=== PATIENT | female | born 1970 | race Caucasian/White ===

== ENCOUNTER 2017-06-04 07:55 | Outpatient (CLI) | payer OTHER ==
--- NOTE | 2017-06-04 10:46 | CT ---
CT ABDOMEN AND PELVIS WITH AND WITHOUT IV CONTRAST: Date: 06/04/17 HISTORY: Microscopic hematuria. FINDINGS: Lung bases are unremarkable. The patient is post gastric banding surgery. There are a few small low d ensity lesions in the liver, likely cysts. No calcified gallstones are seen. The spleen, pancreas, an d adrenal glands are normal. No calculi are seen in the kidneys, ureters, or the urinary bladder. Pos tcontrast images demonstrate no renal masses. There is normal contrast excretion into the ureters and urinary bladder. No free air, free fluid, or lymphadenopathy seen in the abdomen or pelvis. There are vascular calcifi cations without evidence of aneurysmal dilatation of the abdominal aorta. The small bowel loops are n ot abnormally dilated. There is sigmoid diverticulosis. A normal appearing appendix is present. There are degenerative changes in the spine. Uterus and ovaries are present. IMPRESSION: 1. No CT evidence of urinary tract calculi/obstruction or mass. 2. Sigmoid diverticulosis. 3. Probable small liver cysts. POS: [facility]
[2017-06-04] MEDS ORDERED: Iopamidol 370 76% 100 ML VIAL ONE (12:57)
== END 2017-06-04 07:56 | disposition home or self-care (01) ==
LOC: CT 07:55
PROVIDERS: ATTEND Internal Medicine
DX: R31.29 Other microscopic hematuria (principal); K57.30 Diverticulosis of large intestine without perforation or abscess without bleeding
CPT/HCPCS: 74178

== ENCOUNTER 2017-07-30 16:52 | Outpatient (CLI) | payer OTHER | END 2017-07-30 16:53 | disposition home or self-care (01) | LOC: BICRAD 16:52 | PROVIDERS: ATTEND Internal Medicine | DX: M79.671 Pain in right foot (principal) ==

== ENCOUNTER 2018-03-11 09:24 | Outpatient (CLI) | payer OTHER ==
--- NOTE | 2018-03-11 10:25 | RAD ---
CHEST 2 VIEWS: HISTORY: Cough. Tobacco abuse. FINDINGS: No comparison. Cardiac silhouette and pulmonary vasculature are unremarkable. Mediastinum is midlin e. No lobar consolidation, pneumothorax, or pleural fluid. IMPRESSION: No active cardiopulmonary abnormalities are demonstrated. POS: [facility]
== END 2018-03-11 09:25 | disposition home or self-care (01) ==
LOC: BICRAD 09:24
PROVIDERS: ATTEND Internal Medicine
DX: R05 Cough (principal)
CPT/HCPCS: 71046

== ENCOUNTER 2018-03-28 10:51 | Emergency (ER) | payer OTHER ==
[2018-03-28 11:21] LABS: Bilirubin Negative (Negative); Blood, Urine Small (Negative); Clarity CLEAR (Clear); Glucose, Urine (Dipstick) Negative (Negative); Leukocyte Negative (Negative); Nitrite Negative (Negative); Protein, Urine (Dipstick) Negative (Neg-Trace); Urobilinogen 0.2 mg/dL (0.2-1.0)
[2018-03-28 11:23] LABS: Bacteria/HPF None Seen HPF (None Seen); Hyaline Casts/LPF 0-3 HYALINE CAST LPF (0-3 Hyaline); Pathc Cast-AUWi Flag 0.43 (0-2.49); Squamous Epithelial None Seen HPF (0-3); WBC/HPF 0-3 HPF (0-3)
[2018-03-28] MEDS ORDERED: Ketorolac Tromethamine 30 MG/ML VIAL ONE (12:26)
[2018-03-28] MEDS ORDERED: Triamcinolone 40 MG/ML VIAL IM SCH (12:30)
[2018-03-28] MEDS ORDERED: Methocarbamol 500 MG TAB PO SCH (12:30)
== END 2018-03-28 13:00 | disposition home or self-care (01) ==
LOC: ERS 10:51
DX: M54.40 Lumbago with sciatica, unspecified side (principal); I10 Essential (primary) hypertension; F41.9 Anxiety disorder, unspecified; F17.210 Nicotine dependence, cigarettes, uncomplicated; Z79.899 Other long term (current) drug therapy
CPT/HCPCS: 81003; 81015; 96372; J1885; J3301

== ENCOUNTER 2018-07-23 08:24 | Outpatient (CLI) | payer OTHER ==
--- NOTE | 2018-07-23 10:22 | RAD ---
BARIUM ESOPHAGRAM: INDICATION: History of laparoscopic gastric band with difficulty in eating and drinking and esophageal mobility. TECHNIQUE: One quarter of the usual effervescent crystal administration was performed. Thick barium contrast wa s administered. Rn Clinical Resource images were performed. The total fluoroscopic time was 1.8 minutes. Total ex posure was 10.526 uGy*^cm2. FINDINGS: There is a gastric band projecting in the 2 to 8 o'clock position. Single-contrast administration of thick barium demonstrates a high-grade obstruction at the level of the gastric band with moderate to prominent distention of the proximal esophagus. There are numerous tertiary contractions of the mid to distal esophagus. Subsequent double-contrast images demonstrate no definite mucosal abnormality of the proximal to mid esophagram. There was retention of contrast at the level of the distal esopha mark that limited visualization of the mucosal pattern of the distal 1/3 of the esophagus. Only minim al amounts of contrast traverse the proximal stomach. There is a small hiatal hernia. IMPRESSION: Laparoscopic gastric band at the level of the proximal stomach causing high-grade obstruction at the level of the band itself. There is distention of the esophagus with tertiary contractions likely ind ucing a mild pseudoachalasia pattern. The retained contrast within the proximal stomach and distal e sophagus limited evaluation of the mucosal pattern at these levels. Visualized mid to proximal esoph josé demonstrates a normal mucosal pattern. POS: [facility]
== END 2018-07-23 08:25 | disposition home or self-care (01) ==
LOC: RAD 08:24
PROVIDERS: ATTEND Surgery
DX: K22.8 Other specified diseases of esophagus (principal); Z98.84 Bariatric surgery status
CPT/HCPCS: 74220

== ENCOUNTER 2018-08-23 14:00 | Outpatient (CLI) | payer OTHER | END 2018-08-23 14:01 | disposition home or self-care (01) | LOC: DTY/OP 14:00 | PROVIDERS: ATTEND Surgery | DX: E66.01 Morbid (severe) obesity due to excess calories (principal) | CPT/HCPCS: 97802 ==

== ENCOUNTER 2018-09-23 08:05 | Outpatient (CLI) | payer OTHER ==
--- NOTE | 2018-09-23 08:44 | MMO ---
Bilateral MAMMO Bilat Screen [facility]. CLINICAL HISTORY: Patient is 48 years old and is seen for screening. The patient has no family history of breast cancer. The patient has no personal history of cancer. VIEWS: The views performed were: bilateral craniocaudal with tomosynthesis and bilateral mediolateral oblique with tomosynthesis. FILMS COMPARED: The present examination has been compared to prior imaging studies performed at [facility] on 08/28/2011, 06/06/2014, 11/20/2015 and 03/14/2016. MAMMOGRAM FINDINGS: There are scattered fibroglandular densities. There are no suspicious masses, suspicious calcifications, or new areas of architectural distortion. IMPRESSION: THERE IS NO MAMMOGRAPHIC EVIDENCE OF MALIGNANCY. A ROUTINE FOLLOW-UP MAMMOGRAM IN 1 YEAR IS RECOMMENDED. THE RESULTS OF THIS EXAM WERE SENT TO THE PATIENT. ACR BI-RADS Category 1 - Negative MAMMOGRAPHY NOTE: 1. A negative mammogram report should not delay a biopsy if a dominant of clinically suspicious mass is present. 2. Approximately 10% to 15% of breast cancers are not detected by mammography. 3. Adenosis and dense breasts may obscure an underlying neoplasm.
== END 2018-09-23 08:06 | disposition home or self-care (01) ==
LOC: BICMAMMO 08:05
PROVIDERS: ATTEND Internal Medicine
DX: Z12.31 Encounter for screening mammogram for malignant neoplasm of breast (principal)
CPT/HCPCS: 77063; 77067

== ENCOUNTER 2018-10-01 12:39 | Outpatient (CLI) | payer OTHER | END 2018-10-01 12:40 | disposition home or self-care (01) | LOC: DTY/OP 12:39 | PROVIDERS: ATTEND Surgery | DX: E66.01 Morbid (severe) obesity due to excess calories (principal) | CPT/HCPCS: 97802 ==

== ENCOUNTER 2018-10-27 12:39 | Outpatient (CLI) | payer OTHER | END 2018-10-27 12:40 | disposition home or self-care (01) | LOC: DTY/OP 12:39 | PROVIDERS: ATTEND Surgery | DX: E66.01 Morbid (severe) obesity due to excess calories (principal) | CPT/HCPCS: 97802 ==

== ENCOUNTER 2019-06-08 09:21 | Outpatient (CLI) | payer OTHER ==
--- NOTE | 2019-06-08 09:41 | RAD ---
XR Shoulder Rt 3 View STANDARD HISTORY: Acute pain of the right shoulder FINDINGS: No fracture or dislocation is identified.
--- NOTE | 2019-06-08 09:42 | RAD ---
XR Cerv Sp Ap Lat STANDARD HISTORY: Neck pain radiating down the right upper extremity COMPARISON: None. FINDINGS: There is loss of cervical lordosis and straightening of the cervical spine. No fracture, noble bluxation or bony destruction is seen. Mild degenerative changes present. These are most prominent at C5-6 level. IMPRESSION: Mild cervical spondylosis.
== END 2019-06-08 09:22 | disposition home or self-care (01) ==
LOC: BICRAD 09:21
PROVIDERS: ATTEND Internal Medicine
DX: M25.511 Pain in right shoulder (principal); M54.2 Cervicalgia; M47.812 Spondylosis without myelopathy or radiculopathy, cervical region
CPT/HCPCS: 72040

== ENCOUNTER 2019-09-08 05:39 | Outpatient (CLI) | payer OTHER ==
[2019-09-08 11:29] LABS: #Basophils 0.1 thou/uL (0.0-0.2); #Eosinphils 0.1 thou/uL (0.0-0.7); #Lymphocytes 2.5 thou/uL (1.20-3.40); #Monocytes 0.5 thou/uL (0.11-0.59); #Neutrophils 5.2 thou/uL (1.40-6.50); %Basophils 0.8 % (0.0-1.0); %Eosinophils 1.5 % (0.0-10.0); %Monocytes 5.5 % (0.0-10.0); %Neutrophils 62.3 % (42.0-75.0); Hemoglobin 11.5 g/dL (12.0-16.0); Mean Corpuscular HGB CONC 31.4 g/dL (32.0-36.0); Mean Corpuscular Hemoglobin 28.2 pg (27.0-31.0); Mean Corpuscular Volume 89.7 fL (78.0-98.0); Mean Platelet Volume 6.5 fL (7.4-10.4); Platelet Count 430 thou/uL (130-400); RBC Distribution Width 12.7 % (11.5-14.5); Red Blood Cell (RBC) Count 4.07 mill/uL (4.20-5.40); White Blood Cell (WBC) Count 8.3 thou/uL (4.8-10.8)
[2019-09-08 11:36] LABS: Anion Gap 12 mmol/L (10-20); BUN (Urea Nitrogen) 9 mg/dL (7.0-18.7); Calc. Creatinine Clearance 0 mL/min (70-130); Calcium 8.8 mg/dL (7.8-10.44); Carbon Dioxide 28 mmol/L (22-29); Chloride 104 mmol/L (98-107); Estimated GFR-MDRD 78; Glucose 91 mg/dL (70-105); Potassium 3.9 mmol/L (3.5-5.1); Sodium 140 mmol/L (136-145)
[2019-09-08 17:18] LABS: SARS-CoV-2 MS2 Positive; SARS-CoV-2 N Gene Negative; SARS-CoV-2 S Gene Negative; SARS-CoV-2 orf1ab Negative
--- NOTE | 2019-09-11 16:13 | EKG ---
Test Reason : Blood Pressure : / mmHG Vent. Rate : 074 BPM Atrial Rate : 074 BPM P-R Int : 146 ms QRS Dur : 084 ms QT Int : 410 ms P-R-T Axes : 043 014 005 degrees QTc Int : 455 ms Normal sinus rhythm Normal ECG When compared with ECG of 21-SEP-2016 16:26, No significant change was found Confirmed by BLU CLARK (2) on 09/11/2019 4:12:20 PM Referred By: EVANGELISTA Confirmed By:BLU CLARK
== END 2019-09-08 05:40 | disposition home or self-care (01) ==
LOC: LABBT 05:39
PROVIDERS: ATTEND Surgery
DX: Z01.818 Encounter for other preprocedural examination (principal); Z11.59 Encounter for screening for other viral diseases; K95.09 Other complications of gastric band procedure
CPT/HCPCS: 80048; 85025; 87635; 93005; 93010; U0003

== ENCOUNTER 2019-09-12 07:02 | Day surgery (SDC) | payer OTHER ==
[2019-09-08 09:39] VITALS: BMI 41.9
[2019-09-12] MEDS ORDERED: Fentanyl 100 MCG/2 ML VIAL ONE (08:36)
[2019-09-12] MEDS ORDERED: Lidocaine 2% Jelly 5 ML TUBE ONE (08:36)
[2019-09-12] MEDS ORDERED: Midazolam HCl 2 mg/2 ml Vial ONE (08:36)
[2019-09-12] MEDS ORDERED: Bupivacaine 0.25% HCL 30 ML VIAL ONE (08:42)
[2019-09-12] MEDS ORDERED: Lidocaine 1% w/Epinephrine 1:100K 20 ML VIAL ONE (08:42)
[2019-09-12] MEDS ORDERED: Levofloxacin 500 mg/D5W 100 ml Premix Bag ONE (08:49)
--- NOTE | 2019-09-12 11:07 | OP ---
DATE OF PROCEDURE: 09/12/2019 PREOPERATIVE DIAGNOSIS: Severe dysphagia. PROCEDURE PERFORMED: Laparoscopic removal of lap band and port. INDICATIONS: This is a 49-year-old female, a lap band placed in 2007, who cannot eat healthy despite an empty band, is having even trouble with liquids. FINDINGS: Very thick capsule surrounding the band. The system was removed intact. DESCRIPTION OF PROCEDURE: After informed consent was obtained, the patient was taken to the operating room and given general endotracheal anesthesia, placed in the supine position. The abdomen was prepped and draped in usual fashion. Local anesthesia was infiltrated subcutaneously and deep. A 5-mm incision was performed approximately 8 inches above the xiphoid slightly to the left. Veress needle inserted. Drop test performed. Pneumoperitoneum was created to a volume of 2 L of carbon dioxide. Utilizing a bladeless 5-mm trocar and 0-degree lap scope, direct visual entry into the abdominal cavity was performed. Pneumoperitoneum was created to a pressure of 15 mmHg. The patient was placed in steep reverse Trendelenburg position. Sheri liver retractor inserted. Left lobe of the liver retracted superiorly. A 5-mm port was placed just to the left of the falciform. A 12-mm port placed in the left upper quadrant through the old scar, where the port was. The lap band tubing was divided just below the pin. This was traced down to the buckle. The buckle was dissected out using blunt and sharp dissection with electrocautery. Then, the capsule was incised with the LigaSure. The buckle was unbuckled. The band was removed from around the stomach capsule further opened circumferentially. The band was removed from the abdomen. Hemostasis was achieved. Trocars and retractors removed. Then, the skin incision enlarged and the lap band port was dissected out. Hemostasis was assured. Subcu reapproximated with interrupted 3-0 Vicryl. Skin closed with interrupted 4-0 Rapide. Dermabond applied. The patient tolerated the procedure well, transferred to Recovery in good condition. Sponge and needle count verified correct x2. Job ID: [id number]
[2019-09-12] MEDS ORDERED: Rocuronium Bromide 10 MG/ML (10ML VIAL) ONE (11:38)
[2019-09-12] MEDS ORDERED: Lidocaine 1% PF 5 ML VIAL ONE (11:38)
[2019-09-12] MEDS ORDERED: Glycopyrrolate 0.2 MG/ML 5 ML SYRINGE ONE (11:38)
[2019-09-12] MEDS ORDERED: Ondansetron PF 4 MG/2 ML Vial ONE (11:38)
[2019-09-12] MEDS ORDERED: Dexamethasone 20 MG/5 ML VIAL ONE (11:38)
[2019-09-12] MEDS ORDERED: PROPOFOL 200 MG/20 ML VIAL ONE (11:38)
== END 2019-09-12 11:55 | disposition home or self-care (01) ==
LOC: SDC 07:02
PROVIDERS: ATTEND Surgery
PROC: 0DP64CZ Removal of Extraluminal Device from Stomach, Percutaneous Endoscopic Approach (ICD-10-PCS; principal; 2019-09-12)
DX: K95.09 Other complications of gastric band procedure (principal); I10 Essential (primary) hypertension; Z79.899 Other long term (current) drug therapy; Z88.0 Allergy status to penicillin
CPT/HCPCS: J0690; J1100; J1956; J2001; J2250; J2405; J2704; J3010; S0020

== ENCOUNTER 2019-11-14 12:43 | Outpatient (CLI) | payer OTHER ==
--- NOTE | 2019-11-14 14:29 | RAD ---
THORACIC SPINE 3 VIEWS: Date; 11/14/2019 HISTORY: Acute left-sided thoracic back pain. FINDINGS/IMPRESSION: No fracture, subluxation, or bony destruction is seen. Mild degenerative changes are present. POS: [facility]
== END 2019-11-14 12:44 | disposition home or self-care (01) ==
LOC: BICRAD 12:43
PROVIDERS: ATTEND Internal Medicine
DX: M54.6 Pain in thoracic spine (principal); M47.814 Spondylosis without myelopathy or radiculopathy, thoracic region
CPT/HCPCS: 72072; 81001; 87086

== ENCOUNTER 2020-01-17 15:12 | Outpatient (CLI) | payer OTHER ==
--- NOTE | 2020-01-17 16:08 | MMO ---
Bilateral MAMMO Bilat Screen [facility]. CLINICAL HISTORY: Patient is 49 years old and is seen for screening. The patient has no family history of breast cancer. The patient has no personal history of cancer. VIEWS: The views performed were: bilateral craniocaudal with tomosynthesis and bilateral mediolateral oblique with tomosynthesis. FILMS COMPARED: The present examination has been compared to prior imaging studies performed at [facility] on 06/06/2014, 11/20/2015, 03/14/2016 and 09/23/2018. This study has been interpreted with the assistance of computer-aided detection. MAMMOGRAM FINDINGS: There are scattered fibroglandular densities. Finding 1: There are stable benign appearing calcifications seen in both breasts. Finding 2: There are stable focal asymmetries seen in both breasts. There are no suspicious masses, suspicious calcifications, or new areas of architectural distortion. IMPRESSION: THERE IS NO MAMMOGRAPHIC EVIDENCE OF MALIGNANCY. A ROUTINE FOLLOW-UP MAMMOGRAM IN 1 YEAR IS RECOMMENDED. THE RESULTS OF THIS EXAM WERE SENT TO THE PATIENT. ACR BI-RADS Category 2 - Benign finding MAMMOGRAPHY NOTE: 1. A negative mammogram report should not delay a biopsy if a dominant of clinically suspicious mass is present. 2. Approximately 10% to 15% of breast cancers are not detected by mammography. 3. Adenosis and dense breasts may obscure an underlying neoplasm. Reported by: KESHIA GENAO MD Electonically Signed: [id number]
== END 2020-01-17 15:13 | disposition home or self-care (01) ==
LOC: BICMAMMO 15:12
PROVIDERS: ATTEND Physician Assistant
DX: Z12.31 Encounter for screening mammogram for malignant neoplasm of breast (principal)
CPT/HCPCS: 77063; 77067

== ENCOUNTER 2020-03-21 19:30 | Outpatient (CLI) | payer OTHER | END 2020-03-21 19:31 | disposition home or self-care (01) | LOC: SLEEPLAB 19:30 | PROVIDERS: ATTEND Internal Medicine | DX: G47.33 Obstructive sleep apnea (adult) (pediatric) (principal); R06.83 Snoring; E66.9 Obesity, unspecified; G47.00 Insomnia, unspecified; Z68.41 Body mass index [BMI] 40.0-44.9, adult | CPT/HCPCS: 95810 ==

== ENCOUNTER 2020-03-26 12:46 | Outpatient (CLI) | payer OTHER ==
--- NOTE | 2020-03-26 13:35 | RAD ---
XR Lumbar Spine 2 Or 3 View HISTORY: Acute left-sided low back pain and left-sided sciatica COMPARISON: None. FINDINGS: No fracture or bony destruction is seen. There is minimal anterolisthesis of L4 over L5. De generative changes are present.
== END 2020-03-26 12:47 | disposition home or self-care (01) ==
LOC: BICRAD 12:46
PROVIDERS: ATTEND Physician Assistant
DX: M54.42 Lumbago with sciatica, left side (principal)
CPT/HCPCS: 72100

== ENCOUNTER 2020-03-26 13:36 | Outpatient (CLI) | payer OTHER ==
[~2020-03-26 13:36] MED LIST: Iopamidol 370 76% 100 ML VIAL ONE
--- NOTE | 2020-03-26 14:35 | CT ---
CT PULMONARY ANGIOGRAM WITH IV CONTRAST AND 3D POSTPROCESSING: Date: 03/26/2020 HISTORY: Shortness of breath. Pain in left leg. FINDINGS: No filling defects are seen in the contrast opacified pulmonary arterial vasculature to suggest pulmo nary embolism. The thoracic aorta is well opacified without aneurysm or dissection. No pleural or per icardial effusions are seen. No focal areas of consolidation or pneumothoraces are seen. There is a 3 .0 mm fissural nodule in the right lung. There are postop changes in the GE junction. There is fatty infiltration of the liver. IMPRESSION: No CT evidence of pulmonary embolism. POS: [facility]
--- NOTE | 2020-03-26 15:24 | ULT ---
ULTRASOUND DOPPLER DUPLEX VENOUS LEFT LOWER EXTREMITY: DATE: 03/26/2020 HISTORY: Left lower extremity pain and edema in 50-year-old female TECHNIQUE: Grayscale, color-flow, and spectral analysis, of major veins of left lower extremity. FINDINGS: There is demonstration of blood flow with normal compressibility, of the left common femoral, profund a femoral, greater saphenous, femoral, popliteal, and posterior tibial, veins. IMPRESSION: Negative. No deep venous thrombosis of left lower extremity.
== END 2020-03-26 13:37 | disposition home or self-care (01) ==
LOC: ULT 13:36
PROVIDERS: ATTEND Physician Assistant
DX: R06.02 Shortness of breath (principal); M79.89 Other specified soft tissue disorders; M79.605 Pain in left leg
CPT/HCPCS: 36415; 71275; 72100; 80053; 83735; 85025; Q9967

== ENCOUNTER 2020-04-04 09:53 | Outpatient (CLI) | payer OTHER ==
--- NOTE | 2020-04-04 10:32 | ULT ---
EXAM: US Gallbladder RUQ CLINICAL HISTORY: Transaminitis.. COMPARISON: None. FINDINGS: Pancreas: Increased echogenicity of the pancreatic parenchyma. The head and body the pancreas are ap preciated. The tail is obscured. Liver:Heterogeneous increased echogenicity which results in limited evaluation for hepatic masses and intrahepatic biliary dilatation. The contour of the hepatic margin appears be maintained. 1.1 x 1.1 x 1.1 cm anechoic focus in the right hepatic lobe, compatible with hepatic cysts. Right hepatic l obe: 17.8 cm Gallbladder: No sonographic evidence of cholelithiasis, gallbladder wall thickening or pericholecysti c fluid. Schaefer's sign:Negative Portal Vein: Patent. Appropriate directional flow Bile ducts: 0.64 cm common bile duct diameter Right kidney: No hydronephrosis. There is renal cortical thinning.. Right kidney measures 5.7 x 11.6 x 5.6 cm. IMPRESSION: 1. Increased echogenicity of the liver likely representing areas of hepatic steatosis and fatty spari ng.
== END 2020-04-04 09:54 | disposition home or self-care (01) ==
LOC: BICULT 09:53
PROVIDERS: ATTEND Internal Medicine
DX: R74.01 Elevation of levels of liver transaminase levels (principal); K76.89 Other specified diseases of liver
CPT/HCPCS: 76705

== ENCOUNTER 2020-04-09 15:39 | Outpatient (CLI) | payer OTHER ==
--- NOTE | 2020-04-09 16:00 | RAD ---
XR Knee Lt 4 View STANDARD HISTORY: Acute pain of left knee FINDINGS: No fracture or dislocation is identified.
--- NOTE | 2020-04-09 16:01 | RAD ---
XR Hip Lt 2-3 View HISTORY: Left hip pain FINDINGS: No fracture or dislocation is identified. No significant arthritic changes are seen.
== END 2020-04-09 15:40 | disposition home or self-care (01) ==
LOC: BICRAD 15:39
PROVIDERS: ATTEND Internal Medicine
DX: M25.552 Pain in left hip (principal); M25.562 Pain in left knee
CPT/HCPCS: 36415; 82607; 82728; 82746; 83540; 83550; 83690; 84439; 84443; 85025

== ENCOUNTER 2020-04-22 19:30 | Outpatient (CLI) | payer OTHER | END 2020-04-22 19:31 | disposition home or self-care (01) | LOC: SLEEPLAB 19:30 | PROVIDERS: ATTEND Internal Medicine | DX: G47.33 Obstructive sleep apnea (adult) (pediatric) (principal); R06.83 Snoring; G47.10 Hypersomnia, unspecified; E66.9 Obesity, unspecified; Z68.41 Body mass index [BMI] 40.0-44.9, adult | CPT/HCPCS: 95811 ==

== ENCOUNTER 2020-12-24 07:36 | Outpatient (CLI) | payer OTHER | END 2020-12-24 07:37 | disposition home or self-care (01) | LOC: BICMRI 07:36 | PROVIDERS: ATTEND Internal Medicine | DX: M47.26 Other spondylosis with radiculopathy, lumbar region (principal); G96.191 Perineural cyst; M47.817 Spondylosis without myelopathy or radiculopathy, lumbosacral region; M48.061 Spinal stenosis, lumbar region without neurogenic claudication | CPT/HCPCS: 72148 ==

== ENCOUNTER 2021-04-22 08:31 | Outpatient (CLI) | payer OTHER | END 2021-04-22 08:32 | disposition home or self-care (01) | LOC: BICRAD 08:31 | PROVIDERS: ATTEND Internal Medicine | DX: M25.562 Pain in left knee (principal) ==

== ENCOUNTER 2021-04-29 07:39 | Outpatient (CLI) | payer OTHER | END 2021-04-29 07:40 | disposition home or self-care (01) | LOC: TBSIIMAG 07:39 | PROVIDERS: ATTEND Internal Medicine | DX: M25.462 Effusion, left knee (principal); S83.232A Complex tear of medial meniscus, current injury, left knee, initial encounter; M17.12 Unilateral primary osteoarthritis, left knee ==

== ENCOUNTER 2021-12-27 15:14 | Outpatient (CLI) | payer BC | END 2021-12-27 15:15 | disposition home or self-care (01) | LOC: BICMAMMO 15:14 | PROVIDERS: ATTEND Internal Medicine | DX: Z12.31 Encounter for screening mammogram for malignant neoplasm of breast (principal) | CPT/HCPCS: 77063; 77067 ==

== ENCOUNTER 2022-03-06 10:12 | Emergency (ER) | payer BC ==
[2022-03-06 10:48] LABS: #Basophils 0.1 thou/uL (0.0-0.2); #Eosinphils 0.1 thou/uL (0.0-0.7); #Lymphocytes 2.7 thou/uL (1.20-3.40); #Monocytes 1.1 thou/uL (0.11-0.59); %Basophils 0.5 % (0.0-1.0); %Eosinophils 0.8 % (0.0-10.0); %Lymphocytes 19.4 % (21.0-51.0); %Monocytes 7.7 % (0.0-10.0); %Neutrophils 71.6 % (42.0-75.0); Hemoglobin 13.4 g/dL (12.0-16.0); Mean Corpuscular HGB CONC 33.3 g/dL (32.0-36.0); Mean Corpuscular Hemoglobin 31.3 pg (27.0-31.0); Mean Platelet Volume 6.3 fL (7.4-10.4); Platelet Count 383 thou/uL (130-400); Red Blood Cell (RBC) Count 4.27 mill/uL (4.20-5.40); White Blood Cell (WBC) Count 13.9 thou/uL (4.8-10.8)
[2022-03-06 11:00] LABS: ALT (SGPT) 14 U/L (8-55); AST (SGOT) 14 U/L (5-34); Albumin 3.9 g/dL (3.5-5.0); Alkaline Phosphatase 110 U/L (40-110); Anion Gap 13 mmol/L (10-20); BUN (Urea Nitrogen) 14 mg/dL (9.8-20.1); Bilirubin, Total 0.7 mg/dL (0.2-1.2); Calc. Creatinine Clearance 0 mL/min (70-130); Calcium 9.3 mg/dL (7.8-10.44); Carbon Dioxide 28 mmol/L (22-29); Chloride 100 mmol/L (98-107); Estimated GFR 84; Globulin 3.5 g/dL (2.4-3.5); Glucose 110 mg/dL (70-105); Lipase 19 U/L (8-78); Potassium 3.5 mmol/L (3.5-5.1); Protein, Total 7.4 g/dL (6.0-8.3); Sodium 137 mmol/L (136-145)
[2022-03-06 12:30] LABS: Bilirubin Negative (Negative); Blood, Urine Negative (Negative); Clarity Clear (Clear); Glucose, Urine (Dipstick) Normal (Negative); Ketone, Urine Negative (Negative); Leukocyte Negative Leu/uL (Negative); Nitrite Negative (Negative); Protein, Urine (Dipstick) Negative (Neg-Trace); Specific Gravity, Urine 1.024 (1.002-1.036); Urobilinogen 6 mg/dL (Less than 2); pH, Urine 6.5 (5.0-9.0)
[2022-03-06] MEDS ORDERED: Iopamidol-370 76% 500 ML 1 ML ONE (12:31)
[2022-03-06] MEDS ORDERED: Morphine 4 MG/ML VIAL ONE (13:17)
[2022-03-06] MEDS ORDERED: Ondansetron PF 4 MG/2 ML Vial ONE (13:17)
[2022-03-06] MEDS ORDERED: metroNIDAZOLE 500 MG/100 ML BAG ONE (13:26)
== END 2022-03-06 14:54 | disposition home or self-care (01) ==
LOC: ERS 10:12
DX: K57.92 Diverticulitis of intestine, part unspecified, without perforation or abscess without bleeding (principal); I10 Essential (primary) hypertension; K21.9 Gastro-esophageal reflux disease without esophagitis; F17.210 Nicotine dependence, cigarettes, uncomplicated; Z79.899 Other long term (current) drug therapy; R30.0 Dysuria
CPT/HCPCS: 36415; 74177; 80053; 81003; 83690; 85025; 94760; 96374; 96375; J2270; J2405; Q9967

== ENCOUNTER 2022-12-04 08:46 | Outpatient (CLI) | payer BC | END 2022-12-04 08:47 | disposition home or self-care (01) | LOC: DTY/OP 08:46 | PROVIDERS: ATTEND Surgery | DX: E66.01 Morbid (severe) obesity due to excess calories (principal); Z71.3 Dietary counseling and surveillance | CPT/HCPCS: 97802 ==

== ENCOUNTER 2023-01-19 09:31 | Outpatient (CLI) | payer BC | END 2023-01-19 09:32 | disposition home or self-care (01) | LOC: BICRAD 09:31 | PROVIDERS: ATTEND Internal Medicine | DX: R06.00 Dyspnea, unspecified (principal) | CPT/HCPCS: 71046 ==

== ENCOUNTER 2023-02-04 14:58 | Outpatient (CLI) | payer BC | END 2023-02-04 14:59 | disposition home or self-care (01) | LOC: BICMRI 14:58 | PROVIDERS: ATTEND Internal Medicine | DX: M50.30 Other cervical disc degeneration, unspecified cervical region (principal) | CPT/HCPCS: 72141 ==

== ENCOUNTER 2023-02-13 15:46 | Outpatient (CLI) | payer BC | END 2023-02-13 15:47 | disposition home or self-care (01) | LOC: BICMAMMO 15:46 | PROVIDERS: ATTEND Internal Medicine | DX: Z12.31 Encounter for screening mammogram for malignant neoplasm of breast (principal) | CPT/HCPCS: 77063; 77067 ==

== ENCOUNTER 2023-03-10 08:08 | Outpatient (CLI) | payer BC ==
[2023-03-10 08:55] LABS: #Basophils 0.1 10x3/uL (0.0-0.2); #Eosinphils 0.1 10x3/uL (0.0-0.5); #Monocytes 0.6 10x3/uL (0.0-1.1); #Neutrophils 6.8 10x3/uL (1.5-8.4); %Basophils 0.6 % (0.0-2.0); %Eosinophils 0.9 % (0.0-6.0); %Lymphocytes 23.6 % (18.0-47.0); %Monocytes 5.7 % (0.0-10.0); %Neutrophils 68.9 % (40.0-75.0); Hematocrit 39.1 % (34.9-44.5); Hemoglobin 12.8 g/dL (12.0-15.5); Mean Corpuscular HGB CONC 32.7 g/dL (32.0-36.0); Mean Corpuscular Hemoglobin 29.8 pg (27.0-33.0); Mean Corpuscular Volume 90.9 fl (81.6-98.3); Mean Platelet Volume 8.3 fl (7.4-10.4); Platelet Count 331 10x3/uL (150-450); RBC Distribution Width 13.4 % (11.5-14.5); White Blood Cell (WBC) Count 9.8 10x3/uL (3.5-10.5)
[2023-03-10 09:25] LABS: ALT (SGPT) 17 U/L (8-55); AST (SGOT) 22 U/L (5-34); Albumin 4.2 g/dL (3.5-5.0); Alkaline Phosphatase 108 U/L (40-110); Anion Gap 15 mmol/L (10-20); BUN (Urea Nitrogen) 17 mg/dL (9.8-20.1); Bilirubin, Direct 0.2 mg/dL (0.1-0.3); Bilirubin, Total 0.4 mg/dL (0.2-1.2); Calc. Creatinine Clearance 0 mL/min (70-130); Calcium 9.1 mg/dL (7.8-10.44); Carbon Dioxide 28 mmol/L (22-29); Chloride 99 mmol/L (98-107); Estimated GFR 89; Globulin 2.9 g/dL (2.4-3.5); Glucose 101 mg/dL (70-105); Potassium 3.7 mmol/L (3.5-5.1); Protein, Total 7.1 g/dL (6.0-8.3); Sodium 138 mmol/L (136-145)
== END 2023-03-10 08:09 | disposition home or self-care (01) ==
LOC: LABBT 08:08
PROVIDERS: ATTEND Surgery
DX: Z01.818 Encounter for other preprocedural examination (principal); E66.01 Morbid (severe) obesity due to excess calories
CPT/HCPCS: 71046; 80053; 80076; 85025; 93005; 93010

== ENCOUNTER 2023-03-10 08:30 | Inpatient (IN) | payer BC ==
[2023-03-10 08:55] VITALS: BMI 44.5
[2023-03-18] MEDS ORDERED: PROPOFOL 20 ML ONE (08:05)
[2023-03-18] MEDS ORDERED: Rocuronium Bromide 10 MG/ML (10ML VIAL) ONE ×2 (08:09→09:53)
[2023-03-18] MEDS ORDERED: Lidocaine 1% PF 5 ML VIAL ONE ×2 (08:09→09:53)
[2023-03-18] MEDS ORDERED: Bupivacaine 0.25% HCL 30 ML VIAL ONE (08:38)
[2023-03-18] MEDS ORDERED: Heparin 5,000 UNITS/ML VIAL ONE (09:40)
[2023-03-18] MEDS ORDERED: fentaNYL PF 100 MCG/2 ML SYRINGE ONE ×2 (09:40→12:12)
[2023-03-18] MEDS ORDERED: LevoFLOXacin 500 mg/D5W 100 ML BAG ONE (09:41)
[2023-03-18] MEDS ORDERED: PROPOFOL 200 MG/20 ML VIAL ONE (09:53)
[2023-03-18] MEDS ORDERED: Dexamethasone 20 MG/5 ML VIAL ONE ×2 (09:53→10:05)
[2023-03-18] MEDS ORDERED: Ondansetron PF 4 MG/2 ML Vial ONE ×3 (09:53→11:41)
[2023-03-18] MEDS ORDERED: SUGAMMADEX SODIUM 200 MG/2 ML VIAL ONE (11:01)
[2023-03-18] MEDS ORDERED: Dextrose 50% Abboject 50 ML SYRINGE SLOW IVP PRN (11:07)
[2023-03-18] MEDS ORDERED: Hydrocodone-Acetamin 15 ML UDCUP PO PRN (11:07)
[2023-03-18] MEDS ORDERED: Promethazine HCl 25 MG/ML VIAL IM PRN ×3 (11:07→11:21)
[2023-03-18] MEDS ORDERED: hydrALAZINE 20 MG/ML VIAL SLOW IVP PRN (11:07)
[2023-03-18] MEDS ORDERED: Morphine 4 MG/ML VIAL SLOW IVP PRN (11:07)
[2023-03-18] MEDS ORDERED: diphenhydrAMINE 50 MG/ML VIAL IVP PRN ×2 (11:07→11:21)
[2023-03-18] MEDS ORDERED: Dextrose 5% in Water 1,000 ML IV PRN (11:07)
[2023-03-18] MEDS ORDERED: Ondansetron PF 4 MG/2 ML Vial IVP PRN ×2 (11:07→11:21)
[2023-03-18] MEDS ORDERED: Glucagon 1 MG/ML KIT IM PRN (11:07)
[2023-03-18] MEDS ORDERED: Morphine 2 MG/ML VIAL SLOW IVP PRN (11:07)
[2023-03-18] MEDS ORDERED: Ipratropium/Albuterol 3 ML NEB NEB PRN (11:07)
[2023-03-18] MEDS ORDERED: diphenhydrAMINE 25 MG CAP PO PRN (11:21)
[2023-03-18] MEDS ORDERED: Ondansetron HCl/PF 4 MG/2 ML Vial IVP PRN (11:21)
[2023-03-18] MEDS ORDERED: FENTANYL 500 MCG/10 ML VIAL 2,000 MCG in Sodium Chloride 0.9% 60 ML IV PRN (11:21)
[2023-03-18] MEDS ORDERED: diphenhydrAMINE 50 MG/ML VIAL IM PRN (11:21)
[2023-03-18] MEDS ORDERED: Naloxone HCl 0.4 mg/ml Vial IV PRN (11:21)
[2023-03-18] MEDS ORDERED: Communication Order-Pharmacy FS SCH (11:30)
[2023-03-18] MEDS ORDERED: fentaNYL 50 mcg/mL 1 mL Vial ONE (11:55)
[2023-03-18] MEDS ORDERED: Ketorolac Tromethamine 30 MG/ML VIAL IVP SCH (12:00)
[2023-03-18] MEDS ORDERED: Labetalol HCl 100 MG/20 ML VIAL ONE (12:58)
[2023-03-18] MEDS ORDERED: hydrALAZINE 20 MG/ML VIAL ONE (13:31)
[2023-03-18] MEDS ORDERED: Promethazine HCl 25 MG/ML VIAL ONE (14:22)
[2023-03-18] MEDS: D5 1/2 NS w/20 mEq KCL 1,000 ML IV SCH ×3 (15:07→23:03)
[2023-03-19 05:41] LABS: #Monocytes 0.8 thou/uL (0.11-0.59); #Neutrophils 10.2 thou/uL (1.40-6.50); %Basophils 0.2 % (0.0-1.0); %Lymphocytes 16.7 % (21.0-51.0); %Monocytes 5.8 % (0.0-10.0); %Neutrophils 76.8 % (42.0-75.0); Hematocrit 34.1 % (36.0-47.0); Hemoglobin 11.1 g/dL (12.0-16.0); Mean Corpuscular HGB CONC 32.6 g/dL (32.0-36.0); Mean Corpuscular Hemoglobin 30.2 pg (27.0-31.0); Mean Corpuscular Volume 92.7 fl (78.0-98.0); Mean Platelet Volume 8.5 fL (7.4-10.4); Platelet Count 313 10x3/uL (130-400); RBC Distribution Width 13.9 % (11.5-14.5); Red Blood Cell (RBC) Count 3.68 mill/uL (4.20-5.40); White Blood Cell (WBC) Count 13.2 10x3/uL (4.8-10.8)
[2023-03-19 06:04] LABS: Anion Gap 11 mmol/L (10-20); BUN (Urea Nitrogen) 9 mg/dL (9.8-20.1); Calc. Creatinine Clearance 167 mL/min (70-130); Calcium 8.4 mg/dL (7.8-10.44); Carbon Dioxide 29 mmol/L (22-29); Chloride 104 mmol/L (98-107); Estimated GFR 96; Glucose 111 mg/dL (70-105); Sodium 141 mmol/L (136-145)
[2023-03-19] MEDS ORDERED: Pantoprazole 40 MG VIAL IVP SCH (09:00)
[2023-03-19] MEDS ORDERED: Hydrocodone-Acetamin 15 ML UDCUP PO PRN (10:34)
[2023-03-19] MEDS: D5 1/2 NS w/20 mEq KCL 1,000 ML IV SCH (11:19)
[2023-03-19 12:51] VITALS: BP 123/72; TEMP 98.8
== END 2023-03-19 17:00 | disposition home or self-care (01) | DRG 621 ==
LOC: SURG A 03-18 07:10 → SURG B 03-18 14:38
PROVIDERS: ADMIT Surgery; ATTEND Surgery
PROC: 0DB64Z3 Excision of Stomach, Percutaneous Endoscopic Approach, Vertical (ICD-10-PCS; principal; 2023-03-18)
PROC: 8E0W4CZ Robotic Assisted Procedure of Trunk Region, Percutaneous Endoscopic Approach (ICD-10-PCS; 2023-03-18)
DX: E66.01 Morbid (severe) obesity due to excess calories (principal); Z68.41 Body mass index [BMI] 40.0-44.9, adult; Z79.899 Other long term (current) drug therapy; I10 Essential (primary) hypertension; E11.9 Type 2 diabetes mellitus without complications; Z86.16 Personal history of COVID-19; Z98.890 Other specified postprocedural states; Z80.1 Family history of malignant neoplasm of trachea, bronchus and lung; Z87.891 Personal history of nicotine dependence; Z88.0 Allergy status to penicillin; Z88.8 Allergy status to other drugs, medicaments and biological substances
CPT/HCPCS: 36415; 80048; 85025; 88307; C1889; C9113; J0360; J1100; J1644; J1650; J1956; J2405; J2550; J2704; J3010; J3480; S0020

== ENCOUNTER 2023-04-24 11:29 | Observation (INO) | payer BC ==
[~2023-04-24 11:29] MED LIST changes: +GASTROGRAFIN 30 ML BOT ONE; -Iopamidol 370 76% 100 ML VIAL ONE; +Iopamidol-370 76% 500 ML MDV (1 ML CHARGE) ONE
[2023-04-24 12:43] LABS: #Basophils 0.1 thou/uL (0.0-0.2); #Eosinphils 0.1 thou/uL (0.0-0.7); #Monocytes 0.6 thou/uL (0.11-0.59); #Neutrophils 6.4 thou/uL (1.40-6.50); %Basophils 0.5 % (0.0-1.0); %Eosinophils 1.1 % (0.0-10.0); %Lymphocytes 31.5 % (21.0-51.0); %Monocytes 5.6 % (0.0-10.0); %Neutrophils 61.1 % (42.0-75.0); Hematocrit 37.5 % (36.0-47.0); Hemoglobin 12.9 g/dL (12.0-16.0); Mean Corpuscular HGB CONC 34.4 g/dL (32.0-36.0); Mean Corpuscular Hemoglobin 30.3 pg (27.0-31.0); Mean Platelet Volume 8.8 fL (7.4-10.4); Platelet Count 331 10x3/uL (130-400); RBC Distribution Width 13.6 % (11.5-14.5); Red Blood Cell (RBC) Count 4.26 mill/uL (4.20-5.40); White Blood Cell (WBC) Count 10.4 10x3/uL (4.8-10.8)
[2023-04-24 13:14] LABS: ALT (SGPT) 31 U/L (8-55); AST (SGOT) 32 U/L (5-34); Albumin 4.3 g/dL (3.5-5.0); Alkaline Phosphatase 86 U/L (40-110); Anion Gap 14 mmol/L (10-20); BUN (Urea Nitrogen) 22 mg/dL (9.8-20.1); Bilirubin, Total 0.5 mg/dL (0.2-1.2); Calc. Creatinine Clearance 0 mL/min (70-130); Calcium 9.4 mg/dL (7.8-10.44); Carbon Dioxide 29 mmol/L (22-29); Chloride 99 mmol/L (98-107); Estimated GFR 70; Globulin 3.1 g/dL (2.4-3.5); Glucose 110 mg/dL (70-105); Lipase 27 U/L (8-78); Protein, Total 7.4 g/dL (6.0-8.3); Sodium 139 mmol/L (136-145)
[2023-04-24 13:55] LABS: Troponin I Less than 0.010 ng/mL (< 0.028)
[2023-04-24 13:56] LABS: Bacteria/HPF None Seen HPF (None Seen); Bilirubin Negative (Negative); Blood, Urine Negative (Negative); CAUTI Indications for Culture Fever or rigors; Clarity Clear (Clear); Glucose, Urine (Dipstick) Normal (Negative); Ketone, Urine Negative (Negative); Leukocyte Negative Leu/uL (Negative); Mucous/LPF Rare LPF (<2+); Nitrite Negative (Negative); Protein, Urine (Dipstick) 20 mg/dL (Neg-Trace); RBC/HPF 0-3 HPF (0-3); Squamous Epithelial 0-3 HPF (0-3); Urobilinogen Normal mg/dL (Less than 2); WBC/HPF 0-3 HPF (0-3)
[2023-04-24 13:57] LABS: Specific Gravity, Urine 1.047 (1.002-1.036)
[2023-04-24 13:58] LABS: Urine Culture Reflex No No
[2023-04-24] MEDS ORDERED: Dextrose 50% Abboject 50 ML SYRINGE SLOW IVP PRN (14:04)
[2023-04-24] MEDS ORDERED: Ipratropium/Albuterol 3 ML NEB NEB PRN (14:04)
[2023-04-24] MEDS ORDERED: Dextrose 5% in Water 1,000 ML IV PRN (14:04)
[2023-04-24] MEDS ORDERED: Glucagon 1 MG/ML KIT IM PRN (14:04)
[2023-04-24] MEDS ORDERED: hydrALAZINE 20 MG/ML VIAL SLOW IVP PRN (14:04)
[2023-04-24] MEDS ORDERED: diphenhydrAMINE 50 MG/ML VIAL IVP PRN (14:04)
[2023-04-24] MEDS ORDERED: Ondansetron PF 4 MG/2 ML Vial IVP PRN (14:04)
[2023-04-24] MEDS ORDERED: Promethazine HCl 25 MG/ML VIAL IM PRN (14:04)
[2023-04-24] MEDS ORDERED: Hydrocodone-Acetamin 15 ML UDCUP PO PRN (14:04)
[2023-04-24] MEDS ORDERED: Morphine 2 MG/ML VIAL SLOW IVP PRN (14:04)
[2023-04-24] MEDS ORDERED: Electrolyte Replacement Protocol 1 EACH FS SCH (14:05)
[2023-04-24] MEDS ORDERED: Potassium Chloride 40 MEQ in Sodium Chloride 0.9% 500 ML IVPB SCH (14:15)
[2023-04-24] MEDS ORDERED: Lactated Ringer's 1,000 ML IV SCH (14:15)
[2023-04-24] MEDS: Ketorolac Tromethamine 30 MG/ML VIAL IVP SCH (17:34)
[2023-04-24] MEDS ORDERED: Electrolyte Replacement Protocol FS PRN (17:45)
[2023-04-24 18:14] VITALS: BMI 40.6
[2023-04-24] MEDS: D5 1/2 NS w/20 mEq KCL 1,000 ML IV SCH ×2 (19:00→21:37)
[2023-04-25] MEDS: Ketorolac Tromethamine 30 MG/ML VIAL IVP SCH ×3 (00:37→14:08)
[2023-04-25] MEDS: D5 1/2 NS w/20 mEq KCL 1,000 ML IV SCH ×2 (05:53→15:24)
[2023-04-25 07:17] LABS: #Eosinphils 0.1 thou/uL (0.0-0.7); #Monocytes 0.4 thou/uL (0.11-0.59); #Neutrophils 3.7 thou/uL (1.40-6.50); %Basophils 0.6 % (0.0-1.0); %Eosinophils 1.9 % (0.0-10.0); %Lymphocytes 33.3 % (21.0-51.0); %Monocytes 6.8 % (0.0-10.0); %Neutrophils 57.1 % (42.0-75.0); Hemoglobin 11.6 g/dL (12.0-16.0); Mean Corpuscular HGB CONC 33.1 g/dL (32.0-36.0); Mean Corpuscular Hemoglobin 29.7 pg (27.0-31.0); Mean Corpuscular Volume 89.7 fl (78.0-98.0); Mean Platelet Volume 8.7 fL (7.4-10.4); Platelet Count 235 10x3/uL (130-400); RBC Distribution Width 13.7 % (11.5-14.5); White Blood Cell (WBC) Count 6.5 10x3/uL (4.8-10.8)
[2023-04-25 07:43] LABS: Anion Gap 11 mmol/L (10-20); BUN (Urea Nitrogen) 16 mg/dL (9.8-20.1); Calc. Creatinine Clearance 126 mL/min (70-130); Calcium 8.5 mg/dL (7.8-10.44); Carbon Dioxide 28 mmol/L (22-29); Chloride 104 mmol/L (98-107); Estimated GFR 77; Glucose 118 mg/dL (70-105); Potassium 3.1 mmol/L (3.5-5.1); Sodium 140 mmol/L (136-145)
[2023-04-25] MEDS: Potassium Chloride 20 MEQ in Premix 1 BAG IVPB SCH ×4 (08:35→15:25)
[2023-04-25] MEDS ORDERED: Pantoprazole 40 MG VIAL IVP SCH (09:00)
[2023-04-25] MEDS ORDERED: Lidocaine 1% PF 5 ML VIAL ONE (09:24)
[2023-04-25] MEDS ORDERED: PROPOFOL 20 ML ONE (09:24)
[2023-04-25] MEDS ORDERED: Ketamine In 0.9 % NaCl 50 MG/5 ML SYRINGE ONE (09:24)
[2023-04-25] MEDS ORDERED: Potassium Chloride 20 MEQ TAB PO SCH (15:30)
[2023-04-25 15:41] VITALS: BP 106/68; TEMP 98.2
== END 2023-04-25 17:14 | disposition home or self-care (01) ==
LOC: ERS 11:29 → SURG A 13:53
PROVIDERS: ADMIT Surgery; ATTEND Surgery
PROC: 0D718ZZ Dilation of Upper Esophagus, Via Natural or Artificial Opening Endoscopic (ICD-10-PCS; principal; 2023-04-25)
DX: K22.2 Esophageal obstruction (principal); K57.90 Diverticulosis of intestine, part unspecified, without perforation or abscess without bleeding; I10 Essential (primary) hypertension; E11.9 Type 2 diabetes mellitus without complications; Z98.84 Bariatric surgery status; Z87.891 Personal history of nicotine dependence
CPT/HCPCS: 36415; 74177; 80048; 80053; 81001; 83605; 83690; 84484; 85025; 93005; 96365; 96375; 96376; C9113; G0378; J1885; J2704; J3480; J3490; J7030; J7120; Q9963; Q9967

== ENCOUNTER 2023-05-19 08:03 | Outpatient (CLI) | payer BC | END 2023-05-19 08:04 | disposition home or self-care (01) | LOC: ULT 08:03 | PROVIDERS: ATTEND Internal Medicine | DX: I82.611 Acute embolism and thrombosis of superficial veins of right upper extremity (principal) ==

== ENCOUNTER 2023-05-25 10:30 | Day surgery (SDC) | payer BC ==
[~2023-05-25 10:30] MED LIST changes: -GASTROGRAFIN 30 ML BOT ONE; -Iopamidol-370 76% 500 ML MDV (1 ML CHARGE) ONE; +Multivitamins, Adult 10 ML, Thiamine HCl 100 MG in Sodium Chloride 0.9% 1,000 ML IV SCH; +Ondansetron PF 4 MG/2 ML Vial IVP PRN; +Sodium Chloride 0.9% 1,000 ML IV SCH
[2023-05-25 11:32] VITALS: BP 131/69; TEMP 98.5
== END 2023-05-25 12:52 | disposition home or self-care (01) ==
LOC: ONC/OP 10:30
PROVIDERS: ATTEND Surgery
DX: E86.0 Dehydration (principal)
CPT/HCPCS: 96365; 96366; J3411; J7050

== ENCOUNTER 2023-05-29 17:12 | Emergency (ER) | payer BC ==
[2023-05-29 17:50] LABS: #Eosinphils 0.1 thou/uL (0.0-0.7); #Monocytes 0.6 thou/uL (0.11-0.59); #Neutrophils 5.4 thou/uL (1.40-6.50); %Basophils 0.4 % (0.0-1.0); %Lymphocytes 33.8 % (21.0-51.0); %Monocytes 6.7 % (0.0-10.0); %Neutrophils 57.8 % (42.0-75.0); Hemoglobin 12.1 g/dL (12.0-16.0); Mean Corpuscular HGB CONC 32.7 g/dL (32.0-36.0); Mean Corpuscular Hemoglobin 30.2 pg (27.0-31.0); Mean Corpuscular Volume 92.3 fl (78.0-98.0); Platelet Count 306 10x3/uL (130-400); RBC Distribution Width 13.3 % (11.5-14.5); Red Blood Cell (RBC) Count 4.01 mill/uL (4.20-5.40); White Blood Cell (WBC) Count 9.3 10x3/uL (4.8-10.8)
[2023-05-29] MEDS ORDERED: Metoclopramide HCl 10 MG (2 mL) VIAL ONE (18:01)
[2023-05-29 18:02] LABS: Bilirubin 1+ (Negative); Blood, Urine Negative (Negative); CAUTI Indications for Culture Pelvic or flank pain; Calcium Oxalate Crystals 4+ HPF (None Seen); Clarity Turbid (Clear); Glucose, Urine (Dipstick) Normal (Negative); Ketone, Urine 10 mg/dL (Negative); Leukocyte 25 Leu/uL (Negative); Nitrite Negative (Negative); Protein, Urine (Dipstick) 50 mg/dL (Neg-Trace); RBC/HPF 0-3 HPF (0-3); Specific Gravity, Urine 1.029 (1.002-1.036); Urobilinogen 3 mg/dL (Less than 2)
[2023-05-29] MEDS ORDERED: Thiamine HCl 200 MG/2 ML VIAL ONE (18:02)
[2023-05-29 18:03] LABS: Bacteria/HPF 1+ HPF (None Seen)
[2023-05-29 18:05] LABS: Urine Culture Reflex No No
[2023-05-29 18:14] LABS: ALT (SGPT) 20 U/L (8-55); AST (SGOT) 24 U/L (5-34); Alkaline Phosphatase 82 U/L (40-110); Anion Gap 11 mmol/L (10-20); BUN (Urea Nitrogen) 9 mg/dL (9.8-20.1); Bilirubin, Total 0.6 mg/dL (0.2-1.2); Calc. Creatinine Clearance 0 mL/min (70-130); Calcium 9.3 mg/dL (7.8-10.44); Carbon Dioxide 29 mmol/L (22-29); Chloride 105 mmol/L (98-107); Estimated GFR 90; Globulin 2.9 g/dL (2.4-3.5); Glucose 92 mg/dL (70-105); Potassium 3.5 mmol/L (3.5-5.1); Protein, Total 6.9 g/dL (6.0-8.3); Sodium 141 mmol/L (136-145)
== END 2023-05-29 20:10 | disposition home or self-care (01) ==
LOC: ERS 17:12
DX: R11.10 Vomiting, unspecified (principal); Z98.84 Bariatric surgery status; I10 Essential (primary) hypertension; K21.9 Gastro-esophageal reflux disease without esophagitis; Z79.899 Other long term (current) drug therapy
CPT/HCPCS: 36415; 80053; 81001; 85025; 96365; 96375; J2765; J3411

== ENCOUNTER 2023-06-07 17:56 | Inpatient (IN) | payer BC ==
[2023-06-07] MEDS ORDERED: Ondansetron PF 4 MG/2 ML Vial ONE (19:11)
[2023-06-07] MEDS ORDERED: Famotidine/PF 20 mg/2ml Vial ONE (19:11)
[2023-06-07 19:37] LABS: #Basophils 0.1 thou/uL (0.0-0.2); #Eosinphils 0.1 thou/uL (0.0-0.7); #Monocytes 0.7 thou/uL (0.11-0.59); #Neutrophils 5.7 thou/uL (1.40-6.50); %Basophils 0.5 % (0.0-1.0); %Lymphocytes 32.3 % (21.0-51.0); %Monocytes 7.2 % (0.0-10.0); %Neutrophils 58.7 % (42.0-75.0); Hematocrit 37.4 % (36.0-47.0); Hemoglobin 12.4 g/dL (12.0-16.0); Mean Corpuscular HGB CONC 33.2 g/dL (32.0-36.0); Mean Corpuscular Volume 90.6 fl (78.0-98.0); Mean Platelet Volume 9.1 fL (7.4-10.4); Platelet Count 333 10x3/uL (130-400); RBC Distribution Width 13.2 % (11.5-14.5); Red Blood Cell (RBC) Count 4.13 mill/uL (4.20-5.40); White Blood Cell (WBC) Count 9.8 10x3/uL (4.8-10.8)
[2023-06-07 20:03] LABS: ALT (SGPT) 16 U/L (8-55); AST (SGOT) 24 U/L (5-34); Albumin 3.9 g/dL (3.5-5.0); Alkaline Phosphatase 80 U/L (40-110); Anion Gap 11 mmol/L (10-20); BUN (Urea Nitrogen) 8 mg/dL (9.8-20.1); Bilirubin, Total 0.4 mg/dL (0.2-1.2); Calc. Creatinine Clearance 0 mL/min (70-130); Calcium 9.3 mg/dL (7.8-10.44); Carbon Dioxide 31 mmol/L (22-29); Chloride 103 mmol/L (98-107); Estimated GFR 85; Globulin 2.8 g/dL (2.4-3.5); Glucose 93 mg/dL (70-105); Lipase 12 U/L (8-78); Magnesium 1.9 mg/dL (1.6-2.6); Potassium 2.8 mmol/L (3.5-5.1); Protein, Total 6.7 g/dL (6.0-8.3); Sodium 142 mmol/L (136-145)
[2023-06-07 20:33] LABS: Bacteria/HPF None Seen HPF (None Seen); Bilirubin 1+ (Negative); Blood, Urine Negative (Negative); CAUTI Indications for Culture Dysuria,urgency,freq; Clarity Turbid (Clear); Glucose, Urine (Dipstick) Normal (Negative); Ketone, Urine 10 mg/dL (Negative); Leukocyte Negative Leu/uL (Negative); Mucous/LPF 2+ LPF (<2+); Nitrite Negative (Negative); Protein, Urine (Dipstick) 50 mg/dL (Neg-Trace); RBC/HPF 0-3 HPF (0-3); Specific Gravity, Urine 1.027 (1.002-1.036); WBC/HPF 0-3 HPF (0-3); pH, Urine 6.5 (5.0-9.0)
[2023-06-07 20:35] LABS: Urine Culture Reflex No No
[2023-06-07] MEDS ORDERED: Ondansetron ODT 4 MG TAB SL PRN (21:45)
[2023-06-07] MEDS ORDERED: Ondansetron PF 4 MG/2 ML Vial IVP PRN (21:45)
[2023-06-07] MEDS ORDERED: Acetaminophen 325 MG TAB PO PRN (22:07)
[2023-06-07] MEDS: Magnesium 2 GM/50 ML(in water) 2 GM in Premix 1 BAG IVPB SCH (23:31)
[2023-06-07] MEDS: NS 0.9% w/ 40 MEQ KCL 1,000 ML IV SCH (23:31)
[2023-06-07 23:59] VITALS: BMI 37.9
[2023-06-08] MEDS: Potassium Bicarbonate/Cit Ac 20 MEQ TAB PO SCH (00:15)
[2023-06-08] MEDS: Lactated Ringer's 1,000 ML IV SCH ×2 (01:46→10:06)
[2023-06-08 04:46] LABS: #Basophils 0.1 thou/uL (0.0-0.2); #Eosinphils 0.1 thou/uL (0.0-0.7); #Monocytes 0.7 thou/uL (0.11-0.59); #Neutrophils 3.6 thou/uL (1.40-6.50); %Basophils 0.7 % (0.0-1.0); %Eosinophils 1.9 % (0.0-10.0); %Lymphocytes 35.9 % (21.0-51.0); %Monocytes 9.3 % (0.0-10.0); %Neutrophils 51.9 % (42.0-75.0); Hematocrit 35.9 % (36.0-47.0); Hemoglobin 11.4 g/dL (12.0-16.0); Mean Corpuscular HGB CONC 31.8 g/dL (32.0-36.0); Mean Corpuscular Hemoglobin 29.6 pg (27.0-31.0); Mean Corpuscular Volume 93.2 fl (78.0-98.0); Mean Platelet Volume 9.1 fL (7.4-10.4); Platelet Count 251 10x3/uL (130-400); RBC Distribution Width 13.2 % (11.5-14.5); Red Blood Cell (RBC) Count 3.85 mill/uL (4.20-5.40)
[2023-06-08 05:12] LABS: Anion Gap 10 mmol/L (10-20); BUN (Urea Nitrogen) 6 mg/dL (9.8-20.1); Calc. Creatinine Clearance 150 mL/min (70-130); Calcium 8.2 mg/dL (7.8-10.44); Carbon Dioxide 26 mmol/L (22-29); Chloride 108 mmol/L (98-107); Estimated GFR 103; Glucose 84 mg/dL (70-105); Magnesium 2.2 mg/dL (1.6-2.6); Potassium 3.1 mmol/L (3.5-5.1); Sodium 141 mmol/L (136-145)
[2023-06-08] MEDS ORDERED: Lactated Ringer's 1,000 ML IV SCH ×2 (09:45→17:00)
[2023-06-08] MEDS: Potassium Chloride 20 MEQ in Lactated Ringer's 1,000 ML IV SCH (15:49)
[2023-06-09 05:52] LABS: #Eosinphils 0.2 thou/uL (0.0-0.7); #Monocytes 0.5 thou/uL (0.11-0.59); #Neutrophils 3.3 thou/uL (1.40-6.50); %Basophils 0.6 % (0.0-1.0); %Eosinophils 2.5 % (0.0-10.0); %Lymphocytes 36.8 % (21.0-51.0); %Monocytes 7.8 % (0.0-10.0); %Neutrophils 51.8 % (42.0-75.0); Hematocrit 34.4 % (36.0-47.0); Mean Corpuscular Hemoglobin 29.8 pg (27.0-31.0); Mean Corpuscular Volume 93.2 fl (78.0-98.0); Mean Platelet Volume 9.4 fL (7.4-10.4); Platelet Count 305 10x3/uL (130-400); RBC Distribution Width 13.4 % (11.5-14.5); Red Blood Cell (RBC) Count 3.69 mill/uL (4.20-5.40); White Blood Cell (WBC) Count 6.4 10x3/uL (4.8-10.8)
[2023-06-09 06:20] LABS: Anion Gap 10 mmol/L (10-20); BUN (Urea Nitrogen) Less than 4 mg/dL (9.8-20.1); Calc. Creatinine Clearance 157 mL/min (70-130); Calcium 8.6 mg/dL (7.8-10.44); Carbon Dioxide 29 mmol/L (22-29); Chloride 109 mmol/L (98-107); Estimated GFR 104; Glucose 87 mg/dL (70-105); Magnesium 1.9 mg/dL (1.6-2.6); Potassium 3.5 mmol/L (3.5-5.1); Sodium 144 mmol/L (136-145)
[2023-06-09] MEDS ORDERED: E-Z-HD 98% W/W 340GM BOT (x-ray ONLY) ONE (08:50)
[2023-06-09] MEDS ORDERED: Barium Sulfate 96% 176 GM BOT (xray ONLY) PO ONE (08:51)
[2023-06-09] MEDS ORDERED: MD-Gastroview 120 ML BOT ONE (08:51)
[2023-06-09] MEDS: Calcium Carbonate 500 MG ChewTAB PO PRN (18:23)
[2023-06-09] MEDS: Aluminum & Magnesium Hydroxide 60 ML, Lidocaine 2% Viscous Solution 30 ML, diphenhydrAM... SSW PRN (19:58)
[2023-06-10 06:34] LABS: Anion Gap 9 mmol/L (10-20); BUN (Urea Nitrogen) Less than 4 mg/dL (9.8-20.1); Calc. Creatinine Clearance 154 mL/min (70-130); Calcium 9.1 mg/dL (7.8-10.44); Carbon Dioxide 30 mmol/L (22-29); Chloride 108 mmol/L (98-107); Estimated GFR 103; Glucose 88 mg/dL (70-105); Magnesium 1.8 mg/dL (1.6-2.6); Potassium 4.2 mmol/L (3.5-5.1); Sodium 143 mmol/L (136-145)
[2023-06-10 11:42] VITALS: TEMP 97.5
[2023-06-10 12:04] VITALS: BP 139/82
== END 2023-06-10 12:38 | disposition home or self-care (01) | DRG 392 ==
LOC: ERS 17:56 → 2NO 21:38 → OBSVTOIN 06-09 11:58 → T4-B 06-09 19:35
PROVIDERS: ADMIT Internal Medicine; ATTEND Family Medicine
DX: K22.2 Esophageal obstruction (principal); I10 Essential (primary) hypertension; K21.9 Gastro-esophageal reflux disease without esophagitis; G25.81 Restless legs syndrome; E87.6 Hypokalemia; K52.9 Noninfective gastroenteritis and colitis, unspecified; E86.0 Dehydration; E66.9 Obesity, unspecified; Z98.890 Other specified postprocedural states; Z87.891 Personal history of nicotine dependence; Z88.8 Allergy status to other drugs, medicaments and biological substances; Z88.0 Allergy status to penicillin; Z68.37 Body mass index [BMI] 37.0-37.9, adult
CPT/HCPCS: 36415; 74240; 80048; 80053; 81001; 83605; 83690; 83735; 85025; 93005; 96361; 96365; 96375; J2405; J3475; J3480; J7120; Q0163; Q9963; S0028

== ENCOUNTER 2023-06-17 15:38 | Emergency (ER) | payer BC ==
[2023-06-17 16:19] LABS: #Eosinphils 0.1 thou/uL (0.0-0.7); #Monocytes 0.6 thou/uL (0.11-0.59); #Neutrophils 5.8 thou/uL (1.40-6.50); %Basophils 0.4 % (0.0-1.0); %Eosinophils 0.7 % (0.0-10.0); %Neutrophils 60.7 % (42.0-75.0); Hematocrit 42.5 % (36.0-47.0); Mean Corpuscular HGB CONC 32.9 g/dL (32.0-36.0); Mean Corpuscular Hemoglobin 29.4 pg (27.0-31.0); Mean Corpuscular Volume 89.1 fl (78.0-98.0); Mean Platelet Volume 9.2 fL (7.4-10.4); Platelet Count 364 10x3/uL (130-400); RBC Distribution Width 13.2 % (11.5-14.5); Red Blood Cell (RBC) Count 4.77 mill/uL (4.20-5.40); White Blood Cell (WBC) Count 9.5 10x3/uL (4.8-10.8)
[2023-06-17] MEDS ORDERED: Nitroglycerin 0.4 MG TAB (25 Tab Bottle) ONE (16:24)
[2023-06-17] MEDS ORDERED: Aspirin Chewable 81 MG TAB ONE (16:24)
[2023-06-17 16:41] LABS: ALT (SGPT) 15 U/L (8-55); AST (SGOT) 22 U/L (5-34); Albumin 4.4 g/dL (3.5-5.0); Alkaline Phosphatase 91 U/L (40-110); Anion Gap 16 mmol/L (10-20); BUN (Urea Nitrogen) 20 mg/dL (9.8-20.1); Bilirubin, Total 0.6 mg/dL (0.2-1.2); Calc. Creatinine Clearance 0 mL/min (70-130); Carbon Dioxide 27 mmol/L (22-29); Chloride 100 mmol/L (98-107); Estimated GFR 76; Globulin 3.4 g/dL (2.4-3.5); Glucose 97 mg/dL (70-105); Potassium 3.6 mmol/L (3.5-5.1); Protein, Total 7.8 g/dL (6.0-8.3); Sodium 139 mmol/L (136-145)
[2023-06-17 16:44] LABS: Troponin I Less than 0.010 ng/mL (< 0.028)
[2023-06-17 19:29] LABS: Troponin I Less than 0.010 ng/mL (< 0.028)
== END 2023-06-17 20:05 | disposition home or self-care (01) ==
LOC: ERS 15:38
DX: R07.9 Chest pain, unspecified (principal); I10 Essential (primary) hypertension; K21.9 Gastro-esophageal reflux disease without esophagitis; G25.81 Restless legs syndrome; Z87.891 Personal history of nicotine dependence; Z79.899 Other long term (current) drug therapy
CPT/HCPCS: 36415; 71045; 80053; 84484; 85025; 85379; 93005

== ENCOUNTER → 2023-06-19 | Day surgery (SDC) | payer BC | LOC: SDC 12:43 | PROVIDERS: ATTEND Surgery | PROC: 4A0B7BZ Measurement of Gastrointestinal Pressure, Via Natural or Artificial Opening (ICD-10-PCS; principal; 2023-06-19) | DX: R13.10 Dysphagia, unspecified (principal); I10 Essential (primary) hypertension; E87.6 Hypokalemia; Z87.891 Personal history of nicotine dependence; K57.90 Diverticulosis of intestine, part unspecified, without perforation or abscess without bleeding; G47.33 Obstructive sleep apnea (adult) (pediatric); E11.9 Type 2 diabetes mellitus without complications; Z86.16 Personal history of COVID-19; Z98.890 Other specified postprocedural states; Z98.84 Bariatric surgery status; Z86.010 Personal history of colon polyps; Z88.0 Allergy status to penicillin; Z88.8 Allergy status to other drugs, medicaments and biological substances; Z79.899 Other long term (current) drug therapy | CPT/HCPCS: 91010 ==

== ENCOUNTER 2023-06-25 10:30 | Emergency (ER) | payer BC ==
[2023-06-25 11:18] LABS: #Basophils 0.1 thou/uL (0.0-0.2); #Eosinphils 0.1 thou/uL (0.0-0.7); #Monocytes 0.6 thou/uL (0.11-0.59); #Neutrophils 9.3 thou/uL (1.40-6.50); %Basophils 0.4 % (0.0-1.0); %Eosinophils 0.6 % (0.0-10.0); %Lymphocytes 20.8 % (21.0-51.0); %Neutrophils 72.8 % (42.0-75.0); Hematocrit 42.8 % (36.0-47.0); Hemoglobin 13.9 g/dL (12.0-16.0); Mean Corpuscular HGB CONC 32.5 g/dL (32.0-36.0); Mean Corpuscular Hemoglobin 29.4 pg (27.0-31.0); Mean Corpuscular Volume 90.7 fl (78.0-98.0); Mean Platelet Volume 9.4 fL (7.4-10.4); Platelet Count 399 10x3/uL (130-400); Red Blood Cell (RBC) Count 4.72 mill/uL (4.20-5.40); White Blood Cell (WBC) Count 12.8 10x3/uL (4.8-10.8)
[2023-06-25] MEDS ORDERED: Ondansetron PF 4 MG/2 ML Vial ONE (11:18)
[2023-06-25 11:48] LABS: ALT (SGPT) 23 U/L (8-55); AST (SGOT) 23 U/L (5-34); Albumin 4.4 g/dL (3.5-5.0); Alkaline Phosphatase 90 U/L (40-110); Anion Gap 19 mmol/L (10-20); BUN (Urea Nitrogen) 21 mg/dL (9.8-20.1); Bilirubin, Total 0.5 mg/dL (0.2-1.2); Calc. Creatinine Clearance 0 mL/min (70-130); Carbon Dioxide 27 mmol/L (22-29); Chloride 95 mmol/L (98-107); Estimated GFR 48; Globulin 3.7 g/dL (2.4-3.5); Glucose 125 mg/dL (70-105); Lipase 20 U/L (8-78); Protein, Total 8.1 g/dL (6.0-8.3); Sodium 138 mmol/L (136-145)
[2023-06-25] MEDS ORDERED: Ketorolac Tromethamine 30 MG (1 mL) VIAL ONE (11:49)
[2023-06-25] MEDS ORDERED: Potassium Bicarbonate/Cit Ac 20 MEQ TAB ONE (13:18)
[2023-06-25] MEDS ORDERED: Iopamidol-370 76% 500 ML MDV (1 ML CHARGE) ONE (13:34)
== END 2023-06-25 16:58 | disposition home or self-care (01) ==
LOC: ERS 10:30
DX: K59.00 Constipation, unspecified (principal); E87.6 Hypokalemia; R11.2 Nausea with vomiting, unspecified; I10 Essential (primary) hypertension; K21.9 Gastro-esophageal reflux disease without esophagitis; Z87.891 Personal history of nicotine dependence; Z79.899 Other long term (current) drug therapy
CPT/HCPCS: 36415; 74177; 80053; 83605; 83690; 85025; 87040; 93005; 96361; 96374; 96375; J1885; J2405; Q9967

== ENCOUNTER 2023-06-29 15:11 | Emergency (ER) | payer BC ==
[2023-06-29 15:34] LABS: #Basophils 0.1 thou/uL (0.0-0.2); #Eosinphils 0.1 thou/uL (0.0-0.7); #Monocytes 0.9 thou/uL (0.11-0.59); #Neutrophils 4.4 thou/uL (1.40-6.50); %Basophils 0.9 % (0.0-1.0); %Eosinophils 1.3 % (0.0-10.0); %Monocytes 10.9 % (0.0-10.0); %Neutrophils 53.5 % (42.0-75.0); Hematocrit 38.3 % (36.0-47.0); Hemoglobin 12.9 g/dL (12.0-16.0); Mean Corpuscular HGB CONC 33.7 g/dL (32.0-36.0); Mean Corpuscular Hemoglobin 29.9 pg (27.0-31.0); Mean Corpuscular Volume 88.9 fl (78.0-98.0); Mean Platelet Volume 9.3 fL (7.4-10.4); Platelet Count 310 10x3/uL (130-400); RBC Distribution Width 13.1 % (11.5-14.5); Red Blood Cell (RBC) Count 4.31 mill/uL (4.20-5.40); White Blood Cell (WBC) Count 8.2 10x3/uL (4.8-10.8)
[2023-06-29 16:00] LABS: Bacteria/HPF 1+ HPF (None Seen); Bilirubin 1+ (Negative); Blood, Urine 3+ (Negative); CAUTI Indications for Culture Pelvic or flank pain; Clarity Turbid (Clear); Glucose, Urine (Dipstick) Normal (Negative); Ketone, Urine 10 mg/dL (Negative); Leukocyte 25 Leu/uL (Negative); Nitrite Negative (Negative); Protein, Urine (Dipstick) 70 mg/dL (Neg-Trace); RBC/HPF Greater than 50 HPF (0-3); Specific Gravity, Urine 1.031 (1.002-1.036); Urobilinogen 6 mg/dL (Less than 2); pH, Urine 5.5 (5.0-9.0)
[2023-06-29 16:01] LABS: Urine Culture Reflex No No
[2023-06-29 16:04] LABS: ALT (SGPT) 21 U/L (8-55); AST (SGOT) 29 U/L (5-34); Alkaline Phosphatase 79 U/L (40-110); Anion Gap 17 mmol/L (10-20); BUN (Urea Nitrogen) 16 mg/dL (9.8-20.1); Bilirubin, Total 0.4 mg/dL (0.2-1.2); Calc. Creatinine Clearance 0 mL/min (70-130); Calcium 9.5 mg/dL (7.8-10.44); Carbon Dioxide 30 mmol/L (22-29); Chloride 95 mmol/L (98-107); Estimated GFR 54; Globulin 3.3 g/dL (2.4-3.5); Glucose 100 mg/dL (70-105); Lipase 23 U/L (8-78); Magnesium 2.1 mg/dL (1.6-2.6); Potassium 2.8 mmol/L (3.5-5.1); Protein, Total 7.3 g/dL (6.0-8.3); Sodium 139 mmol/L (136-145)
[2023-06-29] MEDS ORDERED: Potassium Chloride 20 MEQ TAB ONE (17:22)
== END 2023-06-29 18:04 | disposition home or self-care (01) ==
LOC: ERS 15:11
DX: N39.0 Urinary tract infection, site not specified (principal); E87.6 Hypokalemia; I10 Essential (primary) hypertension; Z87.891 Personal history of nicotine dependence
CPT/HCPCS: 36415; 80053; 81001; 83605; 83690; 83735; 85025; 87086; 99284

== ENCOUNTER 2023-07-05 10:17 | Emergency (ER) | payer BC ==
[2023-07-05 11:23] LABS: #Eosinphils 0.1 thou/uL (0.0-0.7); #Monocytes 0.5 thou/uL (0.11-0.59); #Neutrophils 3.7 thou/uL (1.40-6.50); %Basophils 0.5 % (0.0-1.0); %Eosinophils 1.5 % (0.0-10.0); %Lymphocytes 34.1 % (21.0-51.0); %Monocytes 7.1 % (0.0-10.0); %Neutrophils 56.5 % (42.0-75.0); Hematocrit 38.3 % (36.0-47.0); Hemoglobin 12.8 g/dL (12.0-16.0); Mean Corpuscular HGB CONC 33.4 g/dL (32.0-36.0); Mean Corpuscular Hemoglobin 30.2 pg (27.0-31.0); Mean Corpuscular Volume 90.3 fl (78.0-98.0); Platelet Count 274 10x3/uL (130-400); Red Blood Cell (RBC) Count 4.24 mill/uL (4.20-5.40); White Blood Cell (WBC) Count 6.6 10x3/uL (4.8-10.8)
[2023-07-05 11:47] LABS: ALT (SGPT) 21 U/L (8-55); AST (SGOT) 28 U/L (5-34); Albumin 3.8 g/dL (3.5-5.0); Alkaline Phosphatase 72 U/L (40-110); Anion Gap 13 mmol/L (10-20); BUN (Urea Nitrogen) 16 mg/dL (9.8-20.1); Bilirubin, Total 0.6 mg/dL (0.2-1.2); Calc. Creatinine Clearance 0 mL/min (70-130); Calcium 9.1 mg/dL (7.8-10.44); Carbon Dioxide 32 mmol/L (22-29); Chloride 98 mmol/L (98-107); Estimated GFR 56; Globulin 3.1 g/dL (2.4-3.5); Glucose 101 mg/dL (70-105); Potassium 2.8 mmol/L (3.5-5.1); Protein, Total 6.9 g/dL (6.0-8.3); Sodium 140 mmol/L (136-145)
[2023-07-05 12:43] LABS: Magnesium 1.9 mg/dL (1.6-2.6)
[2023-07-05] MEDS ORDERED: NS 0.9% w/ 20 MEQ KCL 0 ML ONE (13:17)
[2023-07-05] MEDS ORDERED: Potassium Bicarbonate/Cit Ac 20 MEQ TAB ONE (13:17)
[2023-07-05] MEDS ORDERED: Potassium Chloride 20 MEQ (100 mL) BAG ONE ×2 (13:48→15:50)
[2023-07-05] MEDS ORDERED: Ondansetron PF 4 MG/2 ML Vial ONE (13:55)
[2023-07-05 18:38] LABS: Potassium 3.7 mmol/L (3.5-5.1)
== END 2023-07-05 18:56 | disposition home or self-care (01) ==
LOC: ERS 10:17
DX: E86.0 Dehydration (principal); E87.6 Hypokalemia; I10 Essential (primary) hypertension; K21.9 Gastro-esophageal reflux disease without esophagitis; Z87.891 Personal history of nicotine dependence; Z79.899 Other long term (current) drug therapy
CPT/HCPCS: 36415; 80053; 83735; 85025; 93005; 96361; 96365; 96366; J2405; J3480

== ENCOUNTER 2023-07-10 17:25 | Emergency (ER) | payer BC ==
[2023-07-10 19:20] LABS: #Eosinphils 0.1 thou/uL (0.0-0.7); #Monocytes 0.6 thou/uL (0.11-0.59); #Neutrophils 4.4 thou/uL (1.40-6.50); %Basophils 0.5 % (0.0-1.0); %Eosinophils 1.1 % (0.0-10.0); %Lymphocytes 36.6 % (21.0-51.0); %Monocytes 7.2 % (0.0-10.0); %Neutrophils 54.5 % (42.0-75.0); Hemoglobin 12.7 g/dL (12.0-16.0); Mean Corpuscular HGB CONC 33.4 g/dL (32.0-36.0); Mean Corpuscular Hemoglobin 29.8 pg (27.0-31.0); Mean Corpuscular Volume 89.2 fl (78.0-98.0); Mean Platelet Volume 9.2 fL (7.4-10.4); Platelet Count 279 10x3/uL (130-400); RBC Distribution Width 13.3 % (11.5-14.5); Red Blood Cell (RBC) Count 4.26 mill/uL (4.20-5.40)
[2023-07-10 19:34] LABS: ALT (SGPT) 20 U/L (8-55); AST (SGOT) 26 U/L (5-34); Albumin 3.9 g/dL (3.5-5.0); Alkaline Phosphatase 77 U/L (40-110); Anion Gap 14 mmol/L (10-20); BUN (Urea Nitrogen) 16 mg/dL (9.8-20.1); Bilirubin, Total 0.7 mg/dL (0.2-1.2); Calc. Creatinine Clearance 0 mL/min (70-130); Calcium 9.7 mg/dL (7.8-10.44); Carbon Dioxide 32 mmol/L (22-29); Chloride 99 mmol/L (98-107); Estimated GFR 53; Globulin 2.9 g/dL (2.4-3.5); Glucose 103 mg/dL (70-105); Potassium 3.6 mmol/L (3.5-5.1); Protein, Total 6.8 g/dL (6.0-8.3); Sodium 141 mmol/L (136-145)
== END 2023-07-11 00:20 | disposition home or self-care (01) ==
LOC: ERS 17:25
DX: E86.0 Dehydration (principal); I10 Essential (primary) hypertension; K21.9 Gastro-esophageal reflux disease without esophagitis; F41.9 Anxiety disorder, unspecified; G25.81 Restless legs syndrome; Z79.899 Other long term (current) drug therapy; E87.6 Hypokalemia
CPT/HCPCS: 36415; 80048; 83735; 85025; 96360; 96361

== ENCOUNTER 2023-07-13 13:24 | Emergency (ER) | payer BC ==
[2023-07-13 17:15] LABS: #Basophils 0.1 thou/uL (0.0-0.2); #Eosinphils 0.1 thou/uL (0.0-0.7); #Monocytes 0.5 thou/uL (0.11-0.59); #Neutrophils 4.6 thou/uL (1.40-6.50); %Basophils 0.6 % (0.0-1.0); %Eosinophils 1.1 % (0.0-10.0); %Lymphocytes 36.4 % (21.0-51.0); %Monocytes 5.9 % (0.0-10.0); %Neutrophils 55.8 % (42.0-75.0); Hematocrit 39.6 % (36.0-47.0); Hemoglobin 13.2 g/dL (12.0-16.0); Mean Corpuscular HGB CONC 33.3 g/dL (32.0-36.0); Mean Corpuscular Hemoglobin 29.9 pg (27.0-31.0); Mean Corpuscular Volume 89.6 fl (78.0-98.0); Mean Platelet Volume 9.5 fL (7.4-10.4); Platelet Count 282 10x3/uL (130-400); RBC Distribution Width 13.4 % (11.5-14.5); Red Blood Cell (RBC) Count 4.42 mill/uL (4.20-5.40); White Blood Cell (WBC) Count 8.2 10x3/uL (4.8-10.8)
[2023-07-13 17:39] LABS: ALT (SGPT) 18 U/L (8-55); AST (SGOT) 26 U/L (5-34); Albumin 3.9 g/dL (3.5-5.0); Alkaline Phosphatase 73 U/L (40-110); Anion Gap 14 mmol/L (10-20); BUN (Urea Nitrogen) 14 mg/dL (9.8-20.1); Bilirubin, Total 0.7 mg/dL (0.2-1.2); Calc. Creatinine Clearance 0 mL/min (70-130); Calcium 9.7 mg/dL (7.8-10.44); Carbon Dioxide 28 mmol/L (22-29); Chloride 101 mmol/L (98-107); Estimated GFR 63; Globulin 3.2 g/dL (2.4-3.5); Glucose 126 mg/dL (70-105); Magnesium 2.1 mg/dL (1.6-2.6); Potassium 2.8 mmol/L (3.5-5.1); Protein, Total 7.1 g/dL (6.0-8.3); Sodium 140 mmol/L (136-145)
[2023-07-13] MEDS ORDERED: Magnesium 2 GM/50 ML BAG (IN WATER) ONE (18:05)
[2023-07-13] MEDS ORDERED: Potassium Chloride 20 MEQ TAB ONE (18:51)
[2023-07-13] MEDS ORDERED: Potassium Chloride 20 MEQ (100 mL) BAG ONE (18:51)
== END 2023-07-14 03:13 | disposition home or self-care (01) ==
LOC: ERS 13:24
DX: E87.6 Hypokalemia (principal); I10 Essential (primary) hypertension; Z98.84 Bariatric surgery status
CPT/HCPCS: 36415; 83735; 85025; 93005; 94760; 96365; 96366; 96375; J3475; J3480

== ENCOUNTER 2023-07-14 11:20 | Day surgery (SDC) | payer BC ==
[2023-07-14] MEDS: Sodium Chloride 0.9% 1,000 ML IV SCH (11:33)
[2023-07-14] MEDS ORDERED: Ondansetron PF 4 MG/2 ML Vial IVP PRN (11:40)
[2023-07-14 12:38] VITALS: BP 121/76; TEMP 98.1
[2023-07-14] MEDS: Thiamine HCl 100 MG, Multivitamins, Adult 10 ML in Sodium Chloride 0.9% 1,000 ML IVPB SCH (12:50)
== END 2023-07-14 14:36 | disposition home or self-care (01) ==
LOC: ONC/OP 11:20
PROVIDERS: ATTEND Surgery
DX: E86.0 Dehydration (principal); Z88.0 Allergy status to penicillin; Z88.8 Allergy status to other drugs, medicaments and biological substances
CPT/HCPCS: 96361; 96365; J3411; J7050

== ENCOUNTER 2023-07-23 06:47 | Emergency (ER) | payer BC ==
[2023-07-23 07:11] LABS: #Eosinphils 0.1 thou/uL (0.0-0.7); #Monocytes 0.4 thou/uL (0.11-0.59); #Neutrophils 3.9 thou/uL (1.40-6.50); %Basophils 0.5 % (0.0-1.0); %Eosinophils 1.6 % (0.0-10.0); %Lymphocytes 28.1 % (21.0-51.0); %Neutrophils 62.6 % (42.0-75.0); Hematocrit 36.9 % (36.0-47.0); Hemoglobin 12.3 g/dL (12.0-16.0); Mean Corpuscular HGB CONC 33.3 g/dL (32.0-36.0); Mean Corpuscular Hemoglobin 30.3 pg (27.0-31.0); Mean Corpuscular Volume 90.9 fl (78.0-98.0); Mean Platelet Volume 9.2 fL (7.4-10.4); Platelet Count 263 10x3/uL (130-400); RBC Distribution Width 13.8 % (11.5-14.5); Red Blood Cell (RBC) Count 4.06 mill/uL (4.20-5.40); White Blood Cell (WBC) Count 6.3 10x3/uL (4.8-10.8)
[2023-07-23] MEDS ORDERED: Ketorolac Tromethamine 30 MG (1 mL) VIAL ONE (07:31)
[2023-07-23] MEDS ORDERED: Ondansetron PF 4 MG/2 ML Vial ONE (07:31)
[2023-07-23 07:35] LABS: ALT (SGPT) 14 U/L (8-55); AST (SGOT) 21 U/L (5-34); Albumin 3.4 g/dL (3.5-5.0); Alkaline Phosphatase 72 U/L (40-110); Anion Gap 14 mmol/L (10-20); BUN (Urea Nitrogen) 7 mg/dL (9.8-20.1); Bilirubin, Total 0.5 mg/dL (0.2-1.2); Calc. Creatinine Clearance 0 mL/min (70-130); Carbon Dioxide 25 mmol/L (22-29); Chloride 107 mmol/L (98-107); Estimated GFR 69; Globulin 2.7 g/dL (2.4-3.5); Glucose 111 mg/dL (70-105); Potassium 3.4 mmol/L (3.5-5.1); Protein, Total 6.1 g/dL (6.0-8.3); Sodium 143 mmol/L (136-145)
[2023-07-23 10:07] LABS: Bacteria/HPF None Seen HPF (None Seen); Bilirubin Negative (Negative); Blood, Urine 3+ (Negative); CAUTI Indications for Culture Acute Hematuria; Calcium Oxalate Crystals 1+ HPF (None Seen); Clarity Turbid (Clear); Glucose, Urine (Dipstick) Normal (Negative); Ketone, Urine Negative (Negative); Leukocyte 25 Leu/uL (Negative); Nitrite Negative (Negative); Protein, Urine (Dipstick) 50 mg/dL (Neg-Trace); RBC/HPF Greater than 50 HPF (0-3); Specific Gravity, Urine 1.022 (1.002-1.036); Squamous Epithelial 0-3 HPF (0-3); Urobilinogen Normal mg/dL (Less than 2); pH, Urine 5.5 (5.0-9.0)
[2023-07-23 10:15] LABS: Urine Culture Reflex No No
== END 2023-07-23 11:01 | disposition home or self-care (01) ==
LOC: ERS 06:47
DX: N20.1 Calculus of ureter (principal); R11.2 Nausea with vomiting, unspecified; I10 Essential (primary) hypertension; K21.9 Gastro-esophageal reflux disease without esophagitis
CPT/HCPCS: 36415; 80053; 81001; 85025; 96361; 96374; 96375; J1885; J2405

== ENCOUNTER 2023-09-07 12:04 | Emergency (ER) | payer BC ==
[2023-09-07 13:23] LABS: #Basophils 0.04 10x3/uL (0.0-0.2); %Basophils 0.6 % (0.0-1.0); %Eosinophils 1.1 % (0.0-10.0); %Lymphocytes 41.1 % (21.0-51.0); %Monocytes 5.5 % (0.0-10.0); %Neutrophils 51.6 % (42.0-75.0); Hematocrit 36.8 % (36.0-47.0); Hemoglobin 12.2 g/dL (12.0-16.0); Mean Corpuscular HGB CONC 33.2 g/dL (32.0-36.0); Mean Corpuscular Hemoglobin 29.8 pg (27.0-31.0); Mean Corpuscular Volume 89.8 fL (78.0-98.0); Mean Platelet Volume 9.2 fL (7.4-10.4); Platelet Count 314 10x3/uL (130-400)
[2023-09-07 14:10] LABS: Globulin 3.3 g/dL (2.4-3.5)
[2023-09-07 14:18] LABS: Anion Gap 13 mmol/L (10-20)
[2023-09-07 14:22] LABS: ALT (SGPT) 10 U/L (8-55); AST (SGOT) 21 U/L (5-34); Albumin 3.3 g/dL (3.5-5.0); Alkaline Phosphatase 69 U/L (40-110); BUN (Urea Nitrogen) 8 mg/dL (9.8-20.1); Bilirubin, Total 0.5 mg/dL (0.2-1.2); Calc. Creatinine Clearance 0 mL/min (70-130); Calcium 9.5 mg/dL (7.8-10.44); Carbon Dioxide 28 mmol/L (22-29); Chloride 105 mmol/L (98-107); Estimated GFR 99; Glucose 102 mg/dL (70-105); Lipase 18 U/L (8-78); Potassium 3.1 mmol/L (3.5-5.1); Protein, Total 6.6 g/dL (6.0-8.3); Sodium 143 mmol/L (136-145)
[2023-09-07] MEDS ORDERED: NS 0.9% w/ 20 MEQ KCL 1,000 ML ONE (15:30)
== END 2023-09-07 18:03 | disposition home or self-care (01) ==
LOC: ERS 12:04
DX: E86.0 Dehydration (principal); E87.6 Hypokalemia; I10 Essential (primary) hypertension
CPT/HCPCS: 36415; 83690; 85025; 93005; 96361; 96365; 96366; J3480

== ENCOUNTER 2023-09-21 10:10 | Emergency (ER) | payer BC ==
[2023-09-21] MEDS ORDERED: Potassium Chloride 20 MEQ (100 mL) BAG ONE (11:30)
== END 2023-09-21 14:36 | disposition home or self-care (01) ==
LOC: ERS 10:10
DX: E87.6 Hypokalemia (principal); I10 Essential (primary) hypertension
CPT/HCPCS: 36415; 80048; 96365; J3480

== ENCOUNTER 2024-01-26 07:51 | Outpatient (CLI) | payer BC | END 2024-01-26 07:52 | disposition home or self-care (01) | LOC: BICULT 07:51 | PROVIDERS: ATTEND Urology | DX: N20.2 Calculus of kidney with calculus of ureter (principal); Z98.890 Other specified postprocedural states | CPT/HCPCS: 76770 ==

== ENCOUNTER 2024-02-23 11:07 | Outpatient (CLI) | payer BC | END 2024-02-23 11:08 | disposition home or self-care (01) | LOC: BICRAD 11:07 | PROVIDERS: ATTEND Internal Medicine | DX: R06.09 Other forms of dyspnea (principal) | CPT/HCPCS: 71046 ==

== ENCOUNTER 2024-04-13 08:06 | Outpatient (CLI) | payer BC ==
[2024-04-13] MEDS ORDERED: Iopamidol 370 76% 100 ML VIAL ONE (14:53)
== END 2024-04-13 08:07 | disposition home or self-care (01) ==
LOC: CT 08:06
PROVIDERS: ATTEND Internal Medicine Cardiovascular Disease
DX: R91.1 Solitary pulmonary nodule (principal); K21.00 Gastro-esophageal reflux disease with esophagitis, without bleeding; K22.89 Other specified disease of esophagus
CPT/HCPCS: 71260; Q9967

== ENCOUNTER 2024-04-20 11:55 | Emergency (ER) | payer BC ==
[~2024-04-20 11:55] MED LIST changes: +Iopamidol-370 76% 500 ML MDV (1 ML CHARGE) ONE; -Multivitamins, Adult 10 ML, Thiamine HCl 100 MG in Sodium Chloride 0.9% 1,000 ML IV SCH; -Ondansetron PF 4 MG/2 ML Vial IVP PRN; -Sodium Chloride 0.9% 1,000 ML IV SCH
[2024-04-20 12:34] LABS: #Basophils 0.04 10x3/uL (0.0-0.2); %Basophils 0.5 % (0.0-1.0); %Eosinophils 1.5 % (0.0-10.0); %Lymphocytes 39.5 % (21.0-51.0); %Monocytes 5.1 % (0.0-10.0); %Neutrophils 53.3 % (42.0-75.0); Hematocrit 34.8 % (36.0-47.0); Hemoglobin 11.5 g/dL (12.0-16.0); Mean Corpuscular Hemoglobin 29.8 pg (27.0-31.0); Mean Corpuscular Volume 90.2 fL (78.0-98.0); Mean Platelet Volume 8.5 fL (7.4-10.4); Platelet Count 319 10x3/uL (130-400); RBC Distribution Width 13.2 % (11.5-14.5); Red Blood Cell (RBC) Count 3.86 mill/uL (4.20-5.40)
[2024-04-20 12:58] LABS: ALT (SGPT) 15 U/L (8-55); AST (SGOT) 17 U/L (5-34); Albumin 3.7 g/dL (3.5-5.0); Alkaline Phosphatase 103 U/L (40-110); Anion Gap 11 mmol/L (10-20); BUN (Urea Nitrogen) 14 mg/dL (9.8-20.1); Bilirubin, Total 0.2 mg/dL (0.2-1.2); Calc. Creatinine Clearance 0 mL/min (70-130); Calcium 9.2 mg/dL (7.8-10.44); Carbon Dioxide 28 mmol/L (22-29); Chloride 104 mmol/L (98-107); Estimated GFR 81; Globulin 2.5 g/dL (2.4-3.5); Glucose 119 mg/dL (70-105); Magnesium 2.1 mg/dL (1.6-2.6); Potassium 3.3 mmol/L (3.5-5.1); Protein, Total 6.2 g/dL (6.0-8.3); Sodium 140 mmol/L (136-145)
[2024-04-20 13:05] LABS: Troponin I Less than 0.010 ng/mL (< 0.028)
== END 2024-04-20 15:26 | disposition home or self-care (01) ==
LOC: ERS 11:55
DX: R06.02 Shortness of breath (principal); I10 Essential (primary) hypertension; K21.9 Gastro-esophageal reflux disease without esophagitis; Z79.899 Other long term (current) drug therapy
CPT/HCPCS: 36415; 71045; 71275; 80053; 83735; 83880; 84484; 85025; 93005; Q9967

== ENCOUNTER 2024-05-31 14:04 | Outpatient (CLI) | payer BC | END 2024-05-31 14:05 | disposition home or self-care (01) | LOC: SCSMRI 14:04 | PROVIDERS: ATTEND Nurse Practitioner Family | DX: Z12.2 Encounter for screening for malignant neoplasm of respiratory organs (principal); R91.1 Solitary pulmonary nodule; U09.9 Post COVID-19 condition, unspecified; R06.02 Shortness of breath; G47.33 Obstructive sleep apnea (adult) (pediatric); I10 Essential (primary) hypertension; Z87.891 Personal history of nicotine dependence | CPT/HCPCS: 70553; 76376 ==

== ENCOUNTER 2024-10-21 12:36 | Outpatient (CLI) | payer BC | END 2024-10-21 12:37 | disposition home or self-care (01) | LOC: RAD 12:36 | PROVIDERS: ATTEND Internal Medicine | DX: M47.22 Other spondylosis with radiculopathy, cervical region (principal) | CPT/HCPCS: 72040 ==

== ENCOUNTER 2024-12-15 09:10 | Emergency (ER) | payer BC ==
[2024-12-15] MEDS ORDERED: diphenhydrAMINE 50 MG/ML VIAL ONE (09:29)
[2024-12-15] MEDS ORDERED: Ketorolac Tromethamine 30 MG (1 mL) VIAL ONE (09:29)
[2024-12-15] MEDS ORDERED: Metoclopramide HCl 10 MG (2 mL) VIAL ONE (09:30)
[2024-12-15 10:02] LABS: #Basophils 0.03 10x3/uL (0.0-0.2); #Eosinophils 0.08 10x3/uL (0.0-0.7); #Monocytes 0.41 10x3/uL (0.11-0.59); #Neutrophils 5.22 10x3/uL (1.40-6.50); %Basophils 0.4 % (0.0-1.0); %Eosinophils 1.0 % (0.0-10.0); %Lymphocytes 25.1 % (21.0-51.0); %Monocytes 5.3 % (0.0-10.0); %Neutrophils 67.9 % (42.0-75.0); Hematocrit 36.9 % (36.0-47.0); Hemoglobin 12.4 g/dL (12.0-16.0); Mean Corpuscular Hemoglobin 30.9 pg (27.0-31.0); Mean Corpuscular Volume 92.0 fL (78.0-98.0); Platelet Count 242 10x3/uL (130-400); Red Blood Cell (RBC) Count 4.01 mill/uL (4.20-5.40); White Blood Cell (WBC) Count 7.69 10x3/uL (4.8-10.8)
[2024-12-15 10:20] LABS: ALT (SGPT) 21 U/L (Less than 34); AST (SGOT) 22 U/L (11-34); Albumin 3.7 g/dL (3.1-4.5); Alkaline Phosphatase 80 U/L (40-110); Anion Gap 12 mmol/L (10-20); BUN (Urea Nitrogen) 14 mg/dL (9.8-20.1); Bilirubin, Total 0.4 mg/dL (0.3-1.2); Calc. Creatinine Clearance 0 mL/min (70-130); Calcium 8.6 mg/dL (7.8-10.44); Carbon Dioxide 26 mmol/L (22-29); Chloride 108 mmol/L (98-107); Globulin 2.5 g/dL (2.4-3.5); Glucose 89 mg/dL (70-105); Potassium 4.0 mmol/L (3.5-5.1); Sodium 142 mmol/L (136-145)
== END 2024-12-15 11:21 | disposition home or self-care (01) ==
LOC: ERS 09:10
DX: G43.909 Migraine, unspecified, not intractable, without status migrainosus (principal); R29.700 NIHSS score 0; I11.0 Hypertensive heart disease with heart failure; I50.9 Heart failure, unspecified
CPT/HCPCS: 70450; 80053; 85025; 96374; 96375; J1200; J1885; J2765

== ENCOUNTER 2025-02-03 18:24 | Emergency (ER) | payer BC ==
[2025-02-03 19:00] LABS: #Basophils 0.05 10x3/uL (0.0-0.2); #Eosinophils 0.07 10x3/uL (0.0-0.7); #Monocytes 0.56 10x3/uL (0.11-0.59); #Neutrophils 4.98 10x3/uL (1.40-6.50); %Basophils 0.5 % (0.0-1.0); %Eosinophils 0.8 % (0.0-10.0); %Lymphocytes 38.0 % (21.0-51.0); %Monocytes 6.1 % (0.0-10.0); %Neutrophils 54.3 % (42.0-75.0); Hematocrit 34.0 % (36.0-47.0); Hemoglobin 11.6 g/dL (12.0-16.0); Mean Corpuscular Hemoglobin 31.0 pg (27.0-31.0); Mean Corpuscular Volume 90.9 fL (78.0-98.0); Platelet Count 273 10x3/uL (130-400); Red Blood Cell (RBC) Count 3.74 mill/uL (4.20-5.40); White Blood Cell (WBC) Count 9.18 10x3/uL (4.8-10.8)
[2025-02-03 19:17] LABS: ALT (SGPT) 19 U/L (Less than 34); AST (SGOT) 23 U/L (11-34); Albumin 3.7 g/dL (3.1-4.5); Alkaline Phosphatase 78 U/L (40-110); Anion Gap 13 mmol/L (10-20); BUN (Urea Nitrogen) 8 mg/dL (9.8-20.1); Bilirubin, Total 0.2 mg/dL (0.3-1.2); Calc. Creatinine Clearance 0 mL/min (70-130); Calcium 8.9 mg/dL (7.8-10.44); Carbon Dioxide 28 mmol/L (22-29); Chloride 105 mmol/L (98-107); Globulin 2.6 g/dL (2.4-3.5); Glucose 88 mg/dL (70-105); Lipase 20 U/L (8-78); Magnesium 1.9 mg/dL (1.6-2.6); Potassium 3.5 mmol/L (3.5-5.1); Sodium 142 mmol/L (136-145)
== END 2025-02-04 01:11 | disposition home or self-care (01) ==
LOC: ERS 18:24
DX: R06.02 Shortness of breath (principal); R07.89 Other chest pain; I11.0 Hypertensive heart disease with heart failure; I50.9 Heart failure, unspecified
CPT/HCPCS: 36415; 71045; 71275; 80053; 83690; 83735; 83880; 84484; 85025; 93005; Q9967

== ENCOUNTER 2025-04-08 17:28 | Emergency (ER) | payer BC ==
[2025-04-08 18:33] LABS: Glucose, Urine (Dipstick) >=1000 mg/dL (Negative); Leukocyte Negative (Negative); Protein, Urine (Dipstick) Negative (Neg-Trace); Specific Gravity, Urine 1.020 (1.005-1.030)
[2025-04-08 18:44] LABS: Bacteria/HPF None Seen HPF (None Seen); CAUTI Indications for Culture Dysuria,urgency,freq; RBC/HPF 0-3 HPF (0-3); WBC/HPF 0-3 HPF (0-3)
[2025-04-08 18:46] LABS: Urine Culture Reflex No No
[2025-04-08] MEDS ORDERED: Ondansetron PF 4 MG/2 ML Vial ONE (19:29)
[2025-04-08 19:34] LABS: #Basophils 0.03 10x3/uL (0.0-0.2); #Eosinophils 0.06 10x3/uL (0.0-0.7); #Monocytes 0.69 10x3/uL (0.11-0.59); #Neutrophils 2.84 10x3/uL (1.40-6.50); %Basophils 0.5 % (0.0-1.0); %Eosinophils 1.0 % (0.0-10.0); %Lymphocytes 37.3 % (21.0-51.0); %Monocytes 11.9 % (0.0-10.0); %Neutrophils 49.1 % (42.0-75.0); Hematocrit 36.7 % (36.0-47.0); Hemoglobin 12.3 g/dL (12.0-16.0); Mean Corpuscular Hemoglobin 30.3 pg (27.0-31.0); Mean Corpuscular Volume 90.4 fL (78.0-98.0); Platelet Count 240 10x3/uL (130-400); Red Blood Cell (RBC) Count 4.06 mill/uL (4.20-5.40); White Blood Cell (WBC) Count 5.79 10x3/uL (4.8-10.8)
[2025-04-08 19:48] LABS: ALT (SGPT) 14 U/L (Less than 34); AST (SGOT) 27 U/L (11-34); Albumin 3.4 g/dL (3.1-4.5); Alkaline Phosphatase 73 U/L (40-110); Anion Gap 11 mmol/L (10-20); BUN (Urea Nitrogen) 7 mg/dL (9.8-20.1); Bilirubin, Total 0.4 mg/dL (0.3-1.2); Calc. Creatinine Clearance 0 mL/min (70-130); Calcium 9.1 mg/dL (7.8-10.44); Carbon Dioxide 27 mmol/L (22-29); Chloride 106 mmol/L (98-107); Globulin 2.8 g/dL (2.4-3.5); Glucose 93 mg/dL (70-105); Lipase 10 U/L (8-78); Potassium 3.1 mmol/L (3.5-5.1); Sodium 141 mmol/L (136-145)
== END 2025-04-08 21:53 | disposition home or self-care (01) ==
LOC: ERS 17:28
DX: K52.9 Noninfective gastroenteritis and colitis, unspecified (principal); K62.89 Other specified diseases of anus and rectum; K80.20 Calculus of gallbladder without cholecystitis without obstruction; I11.0 Hypertensive heart disease with heart failure; I50.9 Heart failure, unspecified; K21.9 Gastro-esophageal reflux disease without esophagitis; Z55.6 Problems related to health literacy; Z79.899 Other long term (current) drug therapy
CPT/HCPCS: 74177; 76705; 80053; 81001; 83690; 85025; 96374; 96375; J2272; J2405; Q9967

== ENCOUNTER 2025-04-11 16:18 | Outpatient (CLI) | payer BC | END 2025-04-11 16:19 | disposition home or self-care (01) | LOC: CT 16:18 | PROVIDERS: ATTEND Internal Medicine | DX: Z12.2 Encounter for screening for malignant neoplasm of respiratory organs (principal); Z87.891 Personal history of nicotine dependence | CPT/HCPCS: 71271 ==